=== PATIENT | male | born 1950 | race Caucasian/White ===

== ENCOUNTER 2024-06-07 11:51 | Inpatient (IN) | payer MEDICARE, OTHER ==
[~2024-06-07] VITALS: Ht 188 cm; Wt 105.0 kg
[2024-06-07] MEDS: SODIUM CHLORIDE 0.9% 1,000 ML IVB ONE (12:15)
[2024-06-07] MEDS: SODIUM CHLORIDE 0.9% 2,000 ML IV ONE (12:15)
[2024-06-07] MEDS: BACITRACIN TOP OINT 1 UD PKG TOP ONE (12:15)
[2024-06-07 12:43] LABS: Basophils # (auto) 0 10 ^3/uL (0-0.2); Basophils % (auto) 0.1 % (0.0-2.0); Eosinophils # (auto) 0.1 10 ^3/uL (0-0.8); Eosinophils % (auto) 0.5 % (0.0-7.0); Hematocrit 29.7 % (41.0-53.0); Hemoglobin 9.9 g/dL (13.5-17.5); Lymphocytes # (auto) 0.7 10 ^3/uL (0.4-5.4); Lymphocytes % (auto) 6.1 % (10.0-50.0); Mean Corpuscular Hemoglobin 32.2 pg (28.0-32.0); Mean Corpuscular Hgb Conc. 33.4 g/dL (32.0-36.0); Mean Corpuscular Volume 96.6 fL (80.0-100.0); Monocytes # (auto) 0.8 10 ^3/uL (0-1.3); Monocytes % (auto) 6.7 % (0.0-12.0); Neutrophils # (auto) 10.3 10 ^3/uL (1.6-8.6); Neutrophils % (auto) 86.6 % (37.0-80.0); Platelet Count (auto) 267 10^3/uL (140-450); Red Blood Cells 3.08 10^6/uL (4.5-5.90); Red Cell Distribution Width 13.5 % (11.8-14.3); White Blood Cell 11.9 10^3/uL (4.4-10.8)
[2024-06-07 13:03] LABS: Alanine Aminotransferase 22 U/L (7-40); Albumin 3.2 g/dL (3.2-4.8); Alkaline Phosphatase 103 U/L (46-116); Anion Gap 7 (5-15); Aspartate Aminotransferase 17 U/L (13-40); BUN/Creatinine Ratio 14.1 (10.0-20.0); Blood Urea Nitrogen 33 mg/dL (9-23); Calcium 8.3 mg/dL (8.5-10.1); Carbon Dioxide 18 mmol/L (20-30); Chloride 111 mmol/L (98-107); Glucose 103 mg/dL (74-106); Magnesium 1.7 mg/dL (1.6-2.6); Potassium 4.2 mmol/L (3.5-5.1); Sodium 136 mmol/L (136-145); Total Protein 6.4 g/dL (5.7-8.2)
[2024-06-07 13:04] LABS: Bilirubin, Total 0.4 mg/dL (0.2-1.0)
[2024-06-07 14:44] VITALS: PULSE 93; O2SAT 95
[2024-06-07] MEDS: cefTRIAXone 1GM/50ML D5W 50 ML IV ONE (15:56)
[2024-06-07 18:52] LABS: Urine Bacteria None Seen /hpf (None Seen)
[2024-06-07 19:18] LABS: Urine Blood 1+ /uL (Negative); Urine Clarity Clear (Clear); Urine Color Light-Yellow (Yellow); Urine Protein, UAD 1+ (Negative); Urine Specific Gravity 1.013 (1.001-1.035); Urine Urobilinogen Normal (Negative); Urine WBC 3 /hpf (0 - 3); Urine pH 5.5 (5.0-9.0)
[2024-06-07 19:50] VITALS: PULSE 93; RESP 16; O2SAT 95
[2024-06-07] MEDS ORDERED: ONDANSETRON HCL 4 MG/2 ML VIAL IV PRN (22:00)
[2024-06-07] MEDS ORDERED: ACETAMINOPHEN 325 MG TAB PO PRN (22:00)
[2024-06-07] MEDS: ACCU-CHEK COMFORT CURVE STRIP VI SCH (22:00)
[2024-06-07] MEDS ORDERED: DEXTROSE (50%) 50ML SYRG IV PRN (22:00)
[2024-06-07] MEDS: SODIUM CHLOR 0.9% PF (SALINE LOCK) 10ML VIAL/SYR IV SCH (22:00)
[2024-06-07] MEDS: InsuLIN REG 1unit/0.01ml Soln (100units/ml) SC SCH (23:33)
[2024-06-07] MEDS: FUROSEMIDE 20 MG/2 ML VIAL IV ONE (23:35)
[2024-06-07] MEDS ORDERED: NITROGLYCERIN 0.4 MG SL TAB SL PRN (23:45)
[2024-06-07] MEDS ORDERED: MORPHINE SULFATE INJ 2 MG/ml SYRG IV PRN (23:45)
[2024-06-08] VITALS (8 sets, daily range): BP systolic 124–154; BP diastolic 56–69; PULSE 78–87; RESP 17–18; TEMP 97.8–98; O2SAT 94–96
[2024-06-08 06:33] LABS: Basophils # (auto) 0 10 ^3/uL (0-0.2); Basophils % (auto) 0.1 % (0.0-2.0); Eosinophils # (auto) 0.2 10 ^3/uL (0-0.8); Eosinophils % (auto) 1.7 % (0.0-7.0); Hematocrit 26.9 % (41.0-53.0); Hemoglobin 9.1 g/dL (13.5-17.5); Lymphocytes # (auto) 1.1 10 ^3/uL (0.4-5.4); Lymphocytes % (auto) 11.4 % (10.0-50.0); Mean Corpuscular Hemoglobin 33.2 pg (28.0-32.0); Mean Corpuscular Hgb Conc. 33.9 g/dL (32.0-36.0); Mean Corpuscular Volume 97.8 fL (80.0-100.0); Monocytes # (auto) 0.6 10 ^3/uL (0-1.3); Monocytes % (auto) 6.4 % (0.0-12.0); Neutrophils # (auto) 7.4 10 ^3/uL (1.6-8.6); Neutrophils % (auto) 80.4 % (37.0-80.0); Platelet Count (auto) 217 10^3/uL (140-450); Red Blood Cells 2.75 10^6/uL (4.5-5.90); Red Cell Distribution Width 13.8 % (11.8-14.3); White Blood Cell 9.3 10^3/uL (4.4-10.8)
[2024-06-08 06:55] LABS: Alanine Aminotransferase 18 U/L (7-40); Albumin 2.8 g/dL (3.2-4.8); Alkaline Phosphatase 88 U/L (46-116); Anion Gap 8 (5-15); Aspartate Aminotransferase 20 U/L (13-40); BUN/Creatinine Ratio 12.7 (10.0-20.0); Bilirubin, Total 0.3 mg/dL (0.2-1.0); Blood Urea Nitrogen 26 mg/dL (9-23); Calcium 7.9 mg/dL (8.5-10.1); Carbon Dioxide 18 mmol/L (20-30); Chloride 111 mmol/L (98-107); Glucose 92 mg/dL (74-106); Potassium 3.8 mmol/L (3.5-5.1); Sodium 137 mmol/L (136-145); Total Protein 5.6 g/dL (5.7-8.2)
[2024-06-08] MEDS: FUROSEMIDE 20 MG/2 ML VIAL IV SCH (09:48)
[2024-06-08] MEDS: cefTRIAXone 1GM/50ML D5W 50 ML IV SCH (17:31)
[2024-06-08 19:32] LABS: Folate (Folic Acid) 3.12 ng/mL (>5.38)
[2024-06-08 20:04] LABS: Protein, Urine 91.3 mg/dL (0.0-11.9); Urine Amorphous Crystal FEW /hpf (None Seen); Urine Bacteria FEW /hpf (None Seen); Urine Blood 1+ /uL (Negative); Urine Clarity Clear (Clear); Urine Color Light-Yellow (Yellow); Urine Mucus FEW (None Seen); Urine Protein, UAD 1+ (Negative); Urine Specific Gravity 1.013 (1.001-1.035); Urine Urobilinogen Normal (Negative); Urine WBC 4 /hpf (0 - 3)
[2024-06-08 22:13] LABS: INR 1.08 (0.9-1.15); Prothrombin Time 11.4 sec (9.3-11.8)
[2024-06-09] VITALS (8 sets, daily range): BP systolic 124–163; BP diastolic 51–78; PULSE 79–95; RESP 18–20; TEMP 97.8–98.6; O2SAT 95–99
[2024-06-09 05:55] LABS: Basophils # (auto) 0 10 ^3/uL (0-0.2); Basophils % (auto) 0.4 % (0.0-2.0); Eosinophils # (auto) 0.1 10 ^3/uL (0-0.8); Eosinophils % (auto) 1.5 % (0.0-7.0); Hematocrit 27.2 % (41.0-53.0); Hemoglobin 9.2 g/dL (13.5-17.5); Lymphocytes # (auto) 1.3 10 ^3/uL (0.4-5.4); Lymphocytes % (auto) 14.1 % (10.0-50.0); Mean Corpuscular Hemoglobin 32.8 pg (28.0-32.0); Mean Corpuscular Hgb Conc. 33.9 g/dL (32.0-36.0); Mean Corpuscular Volume 96.6 fL (80.0-100.0); Monocytes # (auto) 0.6 10 ^3/uL (0-1.3); Monocytes % (auto) 6.7 % (0.0-12.0); Neutrophils % (auto) 77.3 % (37.0-80.0); Nucleated Red Blood Cells % 0.1 %; Platelet Count (auto) 215 10^3/uL (140-450); Red Blood Cells 2.82 10^6/uL (4.5-5.90); Red Cell Distribution Width 13.6 % (11.8-14.3); White Blood Cell 9.1 10^3/uL (4.4-10.8)
[2024-06-09 06:09] LABS: Chloride 110 mmol/L (98-107); Potassium 4.1 mmol/L (3.5-5.1); Sodium 136 mmol/L (136-145)
[2024-06-09 06:10] LABS: Anion Gap 5 (5-15); Carbon Dioxide 21 mmol/L (20-30)
[2024-06-09 06:11] LABS: Calcium 7.9 mg/dL (8.7-10.4)
[2024-06-09 06:15] LABS: Glucose 99 mg/dL (74-106)
[2024-06-09 06:20] LABS: BUN/Creatinine Ratio 12.9 (10.0-20.0); Blood Urea Nitrogen 27 mg/dL (9-23)
[2024-06-09] MEDS: ENOXAPARIN SOD 40 MG/0.4 ML SYRINGE SC SCH (10:36)
[2024-06-09] MEDS: predniSONE 5 MG TAB PO ONE (16:14)
[2024-06-09] MEDS: FLUCONAZOLE 200MG/100ML 100 ML IV ONE (16:14)
[2024-06-10] VITALS (8 sets, daily range): BP systolic 138–165; BP diastolic 50–81; PULSE 76–93; RESP 18–20; TEMP 97.9–98.4; O2SAT 95–98
[2024-06-10 06:18] LABS: Basophils # (auto) 0 10 ^3/uL (0-0.2); Basophils % (auto) 0.2 % (0.0-2.0); Eosinophils # (auto) 0.1 10 ^3/uL (0-0.8); Hemoglobin 9.6 g/dL (13.5-17.5); Lymphocytes # (auto) 1.3 10 ^3/uL (0.4-5.4); Lymphocytes % (auto) 12.7 % (10.0-50.0); Mean Corpuscular Hemoglobin 33.2 pg (28.0-32.0); Mean Corpuscular Hgb Conc. 34.3 g/dL (32.0-36.0); Mean Corpuscular Volume 96.6 fL (80.0-100.0); Monocytes # (auto) 0.6 10 ^3/uL (0-1.3); Monocytes % (auto) 5.7 % (0.0-12.0); Neutrophils # (auto) 8.3 10 ^3/uL (1.6-8.6); Neutrophils % (auto) 80.4 % (37.0-80.0); Platelet Count (auto) 211 10^3/uL (140-450); Red Cell Distribution Width 13.5 % (11.8-14.3); White Blood Cell 10.4 10^3/uL (4.4-10.8)
[2024-06-10 06:45] LABS: Alanine Aminotransferase 16 U/L (7-40); Alkaline Phosphatase 84 U/L (46-116); Anion Gap 4 (5-15); Aspartate Aminotransferase 15 U/L (13-40); Carbon Dioxide 23 mmol/L (20-30); Chloride 108 mmol/L (98-107); Glucose 100 mg/dL (74-106); Magnesium 1.3 mg/dL (1.6-2.6); Potassium 4.5 mmol/L (3.5-5.1); Sodium 135 mmol/L (136-145)
[2024-06-10 06:46] LABS: Albumin 2.7 g/dL (3.2-4.8); Bilirubin, Total 0.2 mg/dL (0.2-1.0); Total Protein 5.6 g/dL (5.7-8.2)
[2024-06-10 07:03] LABS: BUN/Creatinine Ratio 12.4 (10.0-20.0); Blood Urea Nitrogen 25 mg/dL (9-23)
[2024-06-10] MEDS: FLUCONAZOLE 200MG/100ML 100 ML IV SCH (09:44)
[2024-06-10] MEDS: DOCUSATE SOD 100 MG CAP PO PRN (09:45)
[2024-06-10] MEDS: predniSONE 5 MG TAB PO SCH (09:45)
[2024-06-10] MEDS: predniSONE 20 MG TAB PO ONE (19:41)
[2024-06-11] VITALS (8 sets, daily range): BP systolic 146–166; BP diastolic 76–92; PULSE 69–85; RESP 14–19; TEMP 97.4–98.1; O2SAT 95–96
[2024-06-11] MEDS: cloNIDine HCL 0.1 MG TAB PO ONE (01:21)
[2024-06-11] MEDS: LOSARTAN POTASSIUM 25 MG TAB PO ONE (06:36)
[2024-06-11 07:14] LABS: Anion Gap 5 (5-15); Carbon Dioxide 21 mmol/L (20-30); Chloride 106 mmol/L (98-107); Potassium 5.1 mmol/L (3.5-5.1); Sodium 132 mmol/L (136-145)
[2024-06-11 07:15] LABS: Calcium 8.3 mg/dL (8.7-10.4)
[2024-06-11 07:20] LABS: BUN/Creatinine Ratio 11.8 (10.0-20.0); Blood Urea Nitrogen 22 mg/dL (9-23); Glucose 177 mg/dL (74-106)
[2024-06-11] MEDS: predniSONE 20 MG TAB PO SCH (11:00)
[2024-06-11] MEDS: FUROSEMIDE 20 MG TAB PO ONE (11:05)
[2024-06-11] MEDS: hydrALAZINE HCL 20 MG/ML VL IV PRN (18:25)
[2024-06-11] MEDS ORDERED: SACUBITRIL-VALSARTAN 24mg/26mg TAB PO SCH (22:00)
[2024-06-12] MEDS: LOSARTAN POTASSIUM 25 MG TAB PO ONE (00:43)
[2024-06-12 05:00] VITALS: BP 168/80; PULSE 74; RESP 18; TEMP 97.5; O2SAT 95
[2024-06-12 07:20] LABS: Basophils # (auto) 0 10 ^3/uL (0-0.2); Basophils % (auto) 0.1 % (0.0-2.0); Eosinophils # (auto) 0 10 ^3/uL (0-0.8); Eosinophils % (auto) 0.1 % (0.0-7.0); Hematocrit 28.8 % (41.0-53.0); Hemoglobin 9.7 g/dL (13.5-17.5); Lymphocytes # (auto) 1.3 10 ^3/uL (0.4-5.4); Lymphocytes % (auto) 10.2 % (10.0-50.0); Mean Corpuscular Hemoglobin 32.2 pg (28.0-32.0); Mean Corpuscular Hgb Conc. 33.5 g/dL (32.0-36.0); Mean Corpuscular Volume 96.2 fL (80.0-100.0); Monocytes # (auto) 0.6 10 ^3/uL (0-1.3); Monocytes % (auto) 4.5 % (0.0-12.0); Neutrophils # (auto) 11.2 10 ^3/uL (1.6-8.6); Neutrophils % (auto) 85.1 % (37.0-80.0); Nucleated Red Blood Cells % 0.1 %; Platelet Count (auto) 262 10^3/uL (140-450); Red Cell Distribution Width 13.8 % (11.8-14.3); White Blood Cell 13.1 10^3/uL (4.4-10.8)
[2024-06-12 07:29] LABS: Chloride 105 mmol/L (98-107); Potassium 4.7 mmol/L (3.5-5.1); Sodium 133 mmol/L (136-145)
[2024-06-12 07:30] LABS: Anion Gap 5 (5-15); Calcium 8.5 mg/dL (8.7-10.4); Carbon Dioxide 23 mmol/L (20-30)
[2024-06-12 07:35] LABS: BUN/Creatinine Ratio 15.6 (10.0-20.0); Blood Urea Nitrogen 29 mg/dL (9-23); Glucose 120 mg/dL (74-106)
[2024-06-12] MEDS: LOSARTAN POTASSIUM 50 MG TAB PO SCH (09:46)
[2024-06-12] MEDS: FUROSEMIDE 20 MG TAB PO SCH (09:47)
[2024-06-12] MEDS ORDERED: LOSARTAN POTASSIUM 25 MG TAB PO SCH (10:00)
[2024-06-12 13:20] VITALS: BP 139/66; PULSE 77; RESP 19; TEMP 97.5; O2SAT 98
[2024-06-12 13:28] VITALS: BP 139/66; PULSE 77; RESP 19; TEMP 97.5; O2SAT 98
[2024-06-12 17:15] VITALS: BP 135/80; PULSE 82; RESP 17; TEMP 97.5; O2SAT 97
[2024-06-12 20:00] VITALS: PULSE 93; PULSE 99; RESP 20
[2024-06-12 21:00] VITALS: BP 109/47; PULSE 93; RESP 20; TEMP 97.8; O2SAT 95
[2024-06-13] VITALS (11 sets, daily range): BP systolic 105–141; BP diastolic 51–68; PULSE 76–109; RESP 18–20; TEMP 97.7–98.6; O2SAT 93–96
[2024-06-13 07:57] LABS: Basophils # (auto) 0 10 ^3/uL (0-0.2); Basophils % (auto) 0.2 % (0.0-2.0); Eosinophils # (auto) 0.1 10 ^3/uL (0-0.8); Eosinophils % (auto) 0.8 % (0.0-7.0); Hematocrit 30.9 % (41.0-53.0); Hemoglobin 10.4 g/dL (13.5-17.5); Lymphocytes # (auto) 1.7 10 ^3/uL (0.4-5.4); Lymphocytes % (auto) 15.6 % (10.0-50.0); Mean Corpuscular Hemoglobin 32.6 pg (28.0-32.0); Mean Corpuscular Hgb Conc. 33.7 g/dL (32.0-36.0); Mean Corpuscular Volume 96.7 fL (80.0-100.0); Monocytes # (auto) 0.8 10 ^3/uL (0-1.3); Neutrophils # (auto) 8.3 10 ^3/uL (1.6-8.6); Neutrophils % (auto) 76.4 % (37.0-80.0); Nucleated Red Blood Cells % 0.1 %; Platelet Count (auto) 287 10^3/uL (140-450); Red Blood Cells 3.19 10^6/uL (4.5-5.90); Red Cell Distribution Width 13.7 % (11.8-14.3); White Blood Cell 10.8 10^3/uL (4.4-10.8)
[2024-06-13 08:08] LABS: Chloride 105 mmol/L (98-107); Potassium 5.4 mmol/L (3.5-5.1); Sodium 133 mmol/L (136-145)
[2024-06-13 08:09] LABS: Anion Gap 3 (5-15); Calcium 8.2 mg/dL (8.7-10.4); Carbon Dioxide 25 mmol/L (20-30)
[2024-06-13 08:14] LABS: BUN/Creatinine Ratio 18.3 (10.0-20.0); Blood Urea Nitrogen 37 mg/dL (9-23); Glucose 97 mg/dL (74-106)
[2024-06-13] MEDS: SODIUM BICARB 8.4% 50Meq/50ml SYR INJ IV ONE (15:24)
[2024-06-13] MEDS: DEXTROSE (50%) 50ML SYRG IV ONE (15:24)
[2024-06-13] MEDS: SODIUM ZIRCONIUM CYCL 10 GM PAK PO STA (15:25)
[2024-06-13] MEDS: FUROSEMIDE 20 MG/2 ML VIAL IV ONE (15:25)
[2024-06-13] MEDS: InsuLIN REG 1unit/0.01ml Soln (100units/ml) IV ONE (15:30)
[2024-06-13] MEDS: ALBUTEROL SULF 2.5 MG/0.5ML(0.5%) NEB SOLN NEB ONE (16:08)
[2024-06-13 20:06] LABS: Anion Gap 6 (5-15); Carbon Dioxide 26 mmol/L (20-30); Chloride 102 mmol/L (98-107); Potassium 4.5 mmol/L (3.5-5.1); Sodium 134 mmol/L (136-145)
[2024-06-13 20:07] LABS: Calcium 8.3 mg/dL (8.7-10.4)
[2024-06-13 20:12] LABS: BUN/Creatinine Ratio 19.2 (10.0-20.0); Blood Urea Nitrogen 41 mg/dL (9-23); Glucose 182 mg/dL (74-106)
[2024-06-13] MEDS: METOPROLOL SUCCINATE XL 50 MG TAB PO ONE (21:50)
[2024-06-14] VITALS (10 sets, daily range): BP systolic 117–153; BP diastolic 58–73; PULSE 69–84; RESP 16–18; TEMP 98–98.7; O2SAT 94–97
[2024-06-14 07:00] LABS: Basophils # (auto) 0.1 10 ^3/uL (0-0.2); Basophils % (auto) 0.6 % (0.0-2.0); Eosinophils # (auto) 0.1 10 ^3/uL (0-0.8); Eosinophils % (auto) 1.2 % (0.0-7.0); Hematocrit 27.4 % (41.0-53.0); Hemoglobin 9.3 g/dL (13.5-17.5); Lymphocytes # (auto) 1.3 10 ^3/uL (0.4-5.4); Lymphocytes % (auto) 11.2 % (10.0-50.0); Mean Corpuscular Hemoglobin 32.7 pg (28.0-32.0); Mean Corpuscular Hgb Conc. 33.9 g/dL (32.0-36.0); Mean Corpuscular Volume 96.3 fL (80.0-100.0); Monocytes % (auto) 8.2 % (0.0-12.0); Neutrophils # (auto) 9.1 10 ^3/uL (1.6-8.6); Neutrophils % (auto) 78.8 % (37.0-80.0); Nucleated Red Blood Cells % 0.1 %; Platelet Count (auto) 266 10^3/uL (140-450); Red Blood Cells 2.84 10^6/uL (4.5-5.90); Red Cell Distribution Width 13.7 % (11.8-14.3); White Blood Cell 11.6 10^3/uL (4.4-10.8)
[2024-06-14 07:02] LABS: Anion Gap 6 (5-15); Carbon Dioxide 25 mmol/L (20-30); Chloride 104 mmol/L (98-107); Potassium 4.8 mmol/L (3.5-5.1); Sodium 135 mmol/L (136-145)
[2024-06-14 07:08] LABS: BUN/Creatinine Ratio 19.8 (10.0-20.0); Blood Urea Nitrogen 41 mg/dL (9-23); Glucose 108 mg/dL (74-106)
[2024-06-14] MEDS: EMPAGLIFLOZIN 10 MG TAB PO SCH (09:21)
[2024-06-14] MEDS: METOPROLOL SUCCINATE XL 50 MG TAB PO SCH (09:22)
[2024-06-14 09:46] LABS: Hepatitis B Core Total AB Negative (Negative)
[2024-06-14 10:32] LABS: Hepatitis A Total Antibody Negative (Negative); Hepatitis B Surface Antibody Negative (Negative); Hepatitis B Surface Antigen Negative (Negative); Hepatitis C Antibody Negative (Negative)
[2024-06-15 01:00] VITALS: BP 148/75; PULSE 73; RESP 18; TEMP 98.1; O2SAT 95
[2024-06-15] MEDS: HYDROcodone-ACET 5/325MG TAB PO PRN (02:52)
[2024-06-15 05:00] VITALS: BP 122/66; PULSE 75; RESP 17; TEMP 97.6; O2SAT 92
[2024-06-15 08:00] VITALS: PULSE 80
[2024-06-15 09:00] VITALS: BP 150/79; PULSE 81; RESP 18; TEMP 98.1; O2SAT 91
[2024-06-15 10:00] VITALS: O2SAT 91
== END 2024-06-15 12:10 | disposition left against medical advice (07) | DRG 602 ==
LOC: EDBD 11:51 → ER 11:51 → TELE 23:42 → TELE-E-ADS 06-08 04:08 → TELE-EAST 06-10 15:10
PROVIDERS: ADMIT Internal Medicine Pulmonary Disease; ATTEND Emergency Medicine
DX: L03.116 Cellulitis of left lower limb (principal); N17.0 Acute kidney failure with tubular necrosis; I13.0 Hypertensive heart and chronic kidney disease with heart failure and stage 1 through stage 4 chronic kidney disease, or unspecified chronic kidney disease; F17.200 Nicotine dependence, unspecified, uncomplicated; E86.0 Dehydration; E11.51 Type 2 diabetes mellitus with diabetic peripheral angiopathy without gangrene; R62.7 Adult failure to thrive; L30.9 Dermatitis, unspecified; E11.621 Type 2 diabetes mellitus with foot ulcer; E11.22 Type 2 diabetes mellitus with diabetic chronic kidney disease; E11.40 Type 2 diabetes mellitus with diabetic neuropathy, unspecified; I50.9 Heart failure, unspecified; N18.32 Chronic kidney disease, stage 3b; E87.5 Hyperkalemia; Z89.511 Acquired absence of right leg below knee; Z99.3 Dependence on wheelchair; Z59.48 Other specified lack of adequate food
CPT/HCPCS: 36415; 70450; 70551; 71045; 80048; 80053; 81001; 82550; 82607; 82746; 82962; 83036; 83735; 83880; 84100; 84156; 84300; 84443; 85025; 85610; 86703; 86704; 86706; 86708; 86803; 87086; 87340; 93005; 93306; G0378; J1450; J1815

== ENCOUNTER 2024-10-22 01:28 | Inpatient (IN) | payer MEDICARE ==
[~2024-10-22] VITALS: Ht 175.3 cm; Wt 97.8 kg
[2024-10-22] MEDS ORDERED: SODIUM CHLORIDE 0.9% 1,000 ML IV ONE (02:00)
[2024-10-22 02:15] VITALS: PULSE 67; RESP 26; O2SAT 100
--- NOTE | 2024-10-22 02:25 | ED.PDOC ---
History of Present Illness HPI Comments 74-year-old male brought in by EMS from home complaining of generalized weakness, nausea, vomiting, shortness a breath and urinary incontinence for the past 2 days. Patient states he is wheelchair-bound and has been having difficulty getting around in his wheelchair due to the weakness. He denies any headache, vision changes or focal weakness. He denies any fever or abdominal pain. Chief Complaint: General Weakness Time Seen by MD: 01:42 Primary Care Provider: NONE Allergies: Coded Allergies: NO KNOWN ALLERGIES (Unverified , 06/07/24) Home Meds No Active Prescriptions or Reported Meds Mode of Arrival: EMS Past Medical History PAST MEDICAL HISTORY: CHF, CKF, DM, HTN Surgical History: BKA Family History Family History: Unknown Social History Smoker: Cigarettes Alcohol: Denies ETOH Use Drugs: Denies Drug Use Lives In: Home All Other Systems: Reviewed and Negative (Comprehensive systems review obtained and negative except for what is stated in the HPI.) Physical Exam General Appearance: Moderate Distress, Obese HEENT: Pale Conjuntivae (L), Pale Conjuntivae (R), Other (Dry mucous membranes) Neck: Full Range of Motion, Non-Tender, Normal Inspection, Supple Respiratory: Decreased Breath Sounds, No Accessory Muscle Use, No Respiratory Distress Cardiovascular: No Edema, No JVD, Regular Rate/Rhythm Breast Exam: Deferred Gastrointestinal: Hernia (Ventral, soft, nontender), Suprapubic, Tenderness (Suprapubic) Genitalia: Deferred Pelvic: Deferred Rectal: Deferred Extremities: Non-tender, No pedal edema, Other (Right BKA) Neurologic: Alert, No Motor Deficits, Normal Affect, Normal Mood, No Sensory Deficits, Other (Moves all extremities, no dysarthria, no facial asymmetry) Cerebellar Function: NOT DONE Reflexes: NOT DONE Skin: Dry, Pallor, Warm Lymphatic: NOT DONE Was a procedure done? 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: Attending Physician Indication: Inability to obtain IV Room prepared for procedure: Yes Rotary Lithographic Press Operator performed hand hygien: Yes Maximal sterile barrier precau: Sterile gown, Sterlie gloves, Large sterlie drape Skin preparation completely dr: Yes Insertion site: Right, Femoral Central line catheter type: [id number] dialysis Number of lumens: 3 Central line exchanged over a: Yes Antiseptic ointment applied to: No Post Assessment: Proper placement Informed consent obtained: Yes Risks/benefits/alt described: Yes EKG EKG : Comments Sinus rhythm, rate 65, MD prolonged at 263, QRS prolonged at 132, QTC 449, left axis deviation, LVH, old inferior infarct, lateral T-wave inversion Differential Dx Considerations may include: UTI, pneumonia, CHF, COPD, bronchitis, anemia, sepsis, dehydration, electrolyte imbalance, arrhythmia, CT, PE, among others X-Ray, Labs, Meds, VS Vital Signs Date Time Temp Pulse Resp B/P (MAP) Pulse Ox O2 Delivery O2 Flow Rate FiO2 10/22/24 02:14 67 16 141/70 (93) 98 10/22/24 01:38 97.0 66 20 74/49 (57) 97 Lab Test 10/22/24 03:40 10/22/24 02:25 Range/Units Troponin I High Sensitivity 15 14 </=54 ng/L White Blood Count 6.0 4.4-10.8 10^3/uL Red Blood Count 3.61 L 4.5-5.90 10^6/uL Hemoglobin 11.3 L 13.5-17.5 g/dL Hematocrit 35.6 L 41.0-53.0 % Mean Corpuscular Volume 98.7 80.0-100.0 fL Mean Corpuscular Hemoglobin 31.3 28.0-32.0 pg Mean Corpuscular Hemoglobin Concent 31.7 L 32.0-36.0 g/dL Red Cell Distribution Width 14.5 H 11.8-14.3 % Platelet Count 240 140-450 10^3/uL Mean Platelet Volume 7.6 6.9-10.8 fL Neutrophils (%) (Auto) 83.0 H 37.0-80.0 % Lymphocytes (%) (Auto) 9.5 L 10.0-50.0 % Monocytes (%) (Auto) 7.3 0.0-12.0 % Eosinophils (%) (Auto) 0.1 0.0-7.0 % Basophils (%) (Auto) 0.1 0.0-2.0 % Neutrophils # (Auto) 5.0 1.6-8.6 10 ^3/uL Lymphocytes # (Auto) 0.6 0.4-5.4 10 ^3/uL Monocytes # (Auto) 0.4 0-1.3 10 ^3/uL Eosinophils # (Auto) 0 0-0.8 10 ^3/uL Basophils # (Auto) 0 0-0.2 10 ^3/uL Nucleated Red Blood Cells 0.1 % Sodium Level 131 L 136-145 mmol/L Potassium Level 5.8 *H 3.5-5.1 mmol/L Chloride Level 104 98-107 mmol/L Carbon Dioxide Level < 10 *L 20-31 mmol/L Anion Gap 17.61730 H 5-15 Blood Urea Nitrogen 71 H 9-23 mg/dL Creatinine 4.10 H 0.700-1.30 mg/dL Glomerular Filtration Rate Calc 15 >90 mL/min BUN/Creatinine Ratio 17.3 10.0-20.0 Serum Glucose 154 H 74-106 mg/dL Lactic Acid Level 3.6 *H 0.4-2.0 mmol/L Calcium Level 9.8 8.7-10.4 mg/dL Total Bilirubin 0.5 0.2-1.0 mg/dL Aspartate Amino Transferase (AST) 21 13-40 U/L Alanine Aminotransferase (ALT) 20 7-40 U/L Alkaline Phosphatase 115 46-116 U/L B-Type Natriuretic Peptide 90.89 0-100 pg/mL Total Protein 9.1 H 5.7-8.2 g/dL Albumin 4.3 3.2-4.8 g/dL Current Medications Medications (Trade) Dose Ordered Sig/Darvin Route Start Time Stop Time Status Last Admin Ondansetron HCl (Zofran) 4 mg ONCE ONCE IV 10/22/24 02:00 10/22/24 02:01 DC 10/22/24 03:19 Famotidine (Pepcid Injection) 20 mg ONCE ONCE IV 10/22/24 02:00 10/22/24 02:01 DC 10/22/24 03:17 PROCEDURE(s): CXRP - CHEST PORTABLE REASON: gen weak, hypotension ORDER NUMBER(s): [id number], ACCESSION NUMBER(s): [id number] Examination: CXRP CLINICAL INDICATION:gen weak, hypotension COMPARISON: None. TECHNIQUE: Frontal radiograph of the chest was obtained. FINDINGS: Patient is in slight rotation. Lungs are clear and well expanded with no pulmonary infiltrate or pleural effusion. There is no pneumothorax. No evidence of cardiomegaly. Mildly elevated left hemidiaphragm. Degenerative changes at bilateral glenohumeral and acromioclavicular joints. No acute osseous abnormality is seen. Radiodensity noted over the upper trachea. Advised clinical correlation. IMPRESSION: No acute cardiopulmonary disease is seen. Electronically Signed 10/22/2024 02:25 Alexander Collins EDURE(s): ABPL - CT AB PEL WO CON-NO ORAL OR IV REASON: abd pain n/v ORDER NUMBER(s): [id number], ACCESSION NUMBER(s): [id number] Critical Finding: Examination: ABPL CLINICAL INDICATION: abd pain n/v COMPARISON: None. CONTRAST USED: None. TECHNIQUE: A plain CT study of the abdomen and pelvis is performed. The examination was performed with 5 mm thin slices. Multiplanar reconstructions were obtained. CT scan was done according to ALARA (As Low As Reasonably Achievable). FINDINGS: CT ABDOMEN Lung bases: Subsegmental atelectasis is seen in both lower lobes. Elevation of left hemidiaphragm is seen suggestive of diaphragmatic eventration or palsy. Suggest ultrasound or fluoroscopy correlation. Solid nodule measuring 7.7 mm is seen in the left lung base. [employer] FOLLOW-UP GUIDELINES: Recommendation: Low-risk patients: CT at 6-12 months, then consider CT at 18-24 months. High-risk patients: CT at 6-12 months, then CT at 18-24 months. Unenhanced Liver: The liver is normal in size. There is no intrahepatic biliary radicle dilatation. Gallbladder: The gallbladder is well distended with few 2 to 3 mm calculi. The common bile duct is not dilated. Unenhanced Pancreas: The pancreas appears atrophic with multiple parenchymal calcifications suggestive of chronic calcific pancreatitis. The peripancreatic fat-planes are normal. Spleen: The spleen is normal in size and does not show any focal abnormality. Retroperitoneum: Subcentimeter-sized left adrenal adenoma is seen. There is no significant retroperitoneal lymphadenopathy. The kidneys are normal in size, with no hydronephrosis or renal calculi. Mild bilateral renal parenchymal thinning seen. Vessels: Aorta, IVC and the mesenteric vessels cannot be commented in this unenhanced CT scan. Stomach and bowel: The small bowel loops appear slightly prominent, measuring 26 mm and fluid filled. There is no ascites. Skeletal system: Degenerative changes are seen involving the spine, bilateral sacroiliac and hip joints. CT PELVIS Appendix: The appendix is unremarkable in appearance. Colon: The cecum and ascending colon appear dilated, measuring 8 cm. The transverse, descending, sigmoid colon and rectum are prominent and fluid filled. Bladder: The urinary bladder is unremarkable. Prostate reveals no abnormality. Bilateral small inguinal hernias seen, containing fat. No abnormal fluid collection is seen. No pelvic lymphadenopathy is identified. IMPRESSION: 1. Small bowel loops appear slightly prominent and fluid filled. The cecum and ascending colon appear dilated. The transverse, descending, sigmoid colon and rectum are prominent and fluid filled. This may represent paralytic ileus in appropriate clinical settings. 2. No abdominal mass or adenopathy. 3. No ascites. 4. No free air or inflammatory changes. Suggest further evaluation with oral and intravenous contrast study. Additional chronic and/or ancillary findings as detailed above. Suggest clinical correlation and follow-up, as clinically deemed necessary. Electronically Signed 10/22/2024 02:55 Alexander Collins X-Ray, Labs, Meds, VS Comment 74-year-old male with a history of hypertension, diabetes, CHF and CKD status post right AKA brought in by EMS from home complaining of generalized weakness, nausea, vomiting, urinary incontinence and shortness of breath Vitals remarkable for temperature 97, BP 74/49 Exam remarkable for moderate distress, active vomiting, suprapubic tenderness, pallor Rhythm strip independently interpreted by me: Sinus rhythm, rate 67, no ectopy. Chest x-ray unremarkable CT abdomen and pelvis IMPRESSION: 1. Small bowel loops appear slightly prominent and fluid filled. The cecum and ascending colon appear dilated. The transverse, descending, sigmoid colon and rectum are prominent and fluid filled. This may represent paralytic ileus in appropriate clinical settings. 2. No abdominal mass or adenopathy. 3. No ascites. 4. No free air or inflammatory changes. CBC remarkable for hemoglobin 11.3, hematocrit 35.6, differential has a left shift comprehensive metabolic panel, BNP troponin negative UA, lactate pending Patient treated with the following in the ED: Zofran 4 mg IV, 1 L 0.9 normal saline IV bolus, morphine 4 mg IV, regular insulin 10 units IV, D50 50 mL IV, albuterol nebulized, sodium bicarb 1 amp IV, calcium gluconate 1 g IV Plan is to admit the patient for IV hydration, electrolyte correction, pain and emesis control and nephrology evaluation Time of 1ST Reevaluation: 02:25 Reevaluation 1ST: Improved Patient Education/Counseling: Diagnosis, Treatment Family Education/Counseling: No Family Present Departure 1 Departure Time of Disposition: 03:00 Impression: Primary Impression: Paralytic ileus of small intestine and colon Additional Impressions: Acute renal failure superimposed on chronic kidney disease Qualified Codes: N17.9 - Acute kidney failure, unspecified; N18.9 - Chronic kidney disease, unspecified Electrolyte imbalance Elevated lactic acid level Disposition: ADMITTED INPATIENT Admit to: Tele Condition: Guarded e-Prescriptions No Active Prescriptions or Reported Meds Critical Care Note Critical Care Time?: Yes (45 min-critical care time only) Critical care comment: Critical care time including multiple bedside re-evaluations, review of lab and imaging studies, and discussion of the case with the admitting provider. Patient is high risk for metabolic decompensation. Stability Stability form required: No Heart Score Heart Score: Heart Score Response (Comments) Value History N/A 0 EKG N/A 0 Age N/A 0 Risk Factors N/A 0 Troponin N/A 0 Total 0 PAUL MEADOWS MD Oct 22, 2024 02:25
--- NOTE | 2024-10-22 02:56 | DVH ---
Critical Finding: Examination: ABPL CLINICAL INDICATION: abd pain n/v COMPARISON: None. CONTRAST USED: None. TECHNIQUE: A plain CT study of the abdomen and pelvis is performed. The examination was performed w ith 5 mm thin slices. Multiplanar reconstructions were obtained. CT scan was done according to ALAR A (As Low As Reasonably Achievable). FINDINGS: CT ABDOMEN Lung bases: Subsegmental atelectasis is seen in both lower lobes. Elevation of left hemidiaphragm is seen suggestive of diaphragmatic eventration or palsy. Suggest ul trasound or fluoroscopy correlation. Solid nodule measuring 7.7 mm is seen in the left lung base. [employer] FOLLOW-UP GUIDELINES: Recommendation: Low-risk patients: CT at 6-12 months, then consider CT at 18-24 months. High-risk patients: CT at 6-12 months, then CT at 18-24 months. Unenhanced Liver: The liver is normal in size. There is no intrahepatic biliary radicle dilatation. Gallbladder: The gallbladder is well distended with few 2 to 3 mm calculi. The common bile duct is not dilated. Unenhanced Pancreas: The pancreas appears atrophic with multiple parenchymal calcifications suggest skyler of chronic calcific pancreatitis. The peripancreatic fat-planes are normal. Spleen: The spleen is normal in size and does not show any focal abnormality. Retroperitoneum: Subcentimeter-sized left adrenal adenoma is seen. There is no significant retroperitoneal lymphadenopathy. The kidneys are normal in size, with no hydronephrosis or renal calculi. Mild bilateral renal parenchymal thinning seen. Vessels: Aorta, IVC and the mesenteric vessels cannot be commented in this unenhanced CT scan. Stomach and bowel: The small bowel loops appear slightly prominent, measuring 26 mm and fluid filled . There is no ascites. Skeletal system: Degenerative changes are seen involving the spine, bilateral sacroiliac and hip sagrario nts. CT PELVIS Appendix: The appendix is unremarkable in appearance. Colon: The cecum and ascending colon appear dilated, measuring 8 cm. The transverse, descending, si gmoid colon and rectum are prominent and fluid filled. Bladder: The urinary bladder is unremarkable. Prostate reveals no abnormality. Bilateral small inguinal hernias seen, containing fat. No abnormal fluid collection is seen. No pelvic lymphadenopathy is identified. IMPRESSION: 1. Small bowel loops appear slightly prominent and fluid filled. The cecum and ascending colon appe ar dilated. The transverse, descending, sigmoid colon and rectum are prominent and fluid filled. Thi s may represent paralytic ileus in appropriate clinical settings. 2. No abdominal mass or adenopathy. 3. No ascites. 4. No free air or inflammatory changes. Suggest further evaluation with oral and intravenous contrast study. Additional chronic and/or ancillary findings as detailed above. Suggest clinical correlation and follow-up, as clinically deemed necessary. Electronically Signed 10/22/2024 02:55 Alexander Collins
[2024-10-22 03:01] LABS: Basophils # (auto) 0 10 ^3/uL (0-0.2); Basophils % (auto) 0.1 % (0.0-2.0); Eosinophils # (auto) 0 10 ^3/uL (0-0.8); Eosinophils % (auto) 0.1 % (0.0-7.0); Hematocrit 35.6 % (41.0-53.0); Hemoglobin 11.3 g/dL (13.5-17.5); Lymphocytes # (auto) 0.6 10 ^3/uL (0.4-5.4); Lymphocytes % (auto) 9.5 % (10.0-50.0); Mean Corpuscular Hemoglobin 31.3 pg (28.0-32.0); Mean Corpuscular Hgb Conc. 31.7 g/dL (32.0-36.0); Mean Corpuscular Volume 98.7 fL (80.0-100.0); Monocytes # (auto) 0.4 10 ^3/uL (0-1.3); Monocytes % (auto) 7.3 % (0.0-12.0); Nucleated Red Blood Cells % 0.1 %; Platelet Count (auto) 240 10^3/uL (140-450); Red Blood Cells 3.61 10^6/uL (4.5-5.90); Red Cell Distribution Width 14.5 % (11.8-14.3)
[2024-10-22] MEDS: FAMOTIDINE (10MG/ML) 2ML VL IV ONE (03:17)
[2024-10-22] MEDS: ONDANSETRON HCL 4 MG/2 ML VIAL IV ONE (03:19)
[2024-10-22 03:22] LABS: Alanine Aminotransferase 20 U/L (7-40); Albumin 4.3 g/dL (3.2-4.8); Alkaline Phosphatase 115 U/L (46-116); Anion Gap 17.00001 (5-15); Aspartate Aminotransferase 21 U/L (13-40); BUN/Creatinine Ratio 17.3 (10.0-20.0); Bilirubin, Total 0.5 mg/dL (0.2-1.0); Blood Urea Nitrogen 71 mg/dL (9-23); Calcium 9.8 mg/dL (8.7-10.4); Chloride 104 mmol/L (98-107); Glucose 154 mg/dL (74-106); Sodium 131 mmol/L (136-145); Total Protein 9.1 g/dL (5.7-8.2)
[2024-10-22 03:29] LABS: Carbon Dioxide < 10 mmol/L (20-31); Potassium 5.8 mmol/L (3.5-5.1)
[2024-10-22 03:30] LABS: Lactic Acid w/Reflex 3.6 mmol/L (0.4-2.0)
[2024-10-22] MEDS: MORPHINE SULFATE 4 MG/ML SYR/VIAL IV ONE (04:00)
[2024-10-22] MEDS: ALBUTEROL SULF 2.5 MG/0.5ML(0.5%) NEB SOLN NEB ONE (04:20)
[2024-10-22] MEDS: CALCIUM GLUC 1,000mg/50ml-NS 50 ML IV ONE (04:44)
[2024-10-22] MEDS: DEXTROSE (50%) 50ML SYRG IV ONE (04:56)
[2024-10-22] MEDS: SODIUM BICARB 8.4% 50Meq/50ml SYR Vial IV ONE (05:01)
[2024-10-22] MEDS: SODIUM ZIRCONIUM CYCL 10 GM PAK PO ONE (05:12)
[2024-10-22] MEDS: InsuLIN REG 1unit/0.01ml Soln (100units/ml) IV ONE (05:32)
[2024-10-22 05:45] LABS: Urine Bacteria None Seen /hpf (None Seen)
[2024-10-22] MEDS: NOREPINEPHRINE 8 MG/250ML KIT 250 ML IV SCH (05:47)
[2024-10-22] MEDS: SODIUM CHLORIDE 0.9% 1,000 ML IV ONE (06:15)
[2024-10-22 06:31] LABS: Urine Amorphous Crystal FEW /hpf (None Seen); Urine Blood Negative /uL (Negative); Urine Clarity Clear (Clear); Urine Color Yellow (Yellow); Urine Protein, UAD 1+ (Negative); Urine Specific Gravity 1.015 (1.001-1.035); Urine Urobilinogen Normal (Negative); Urine WBC <1 /hpf (0 - 3)
[2024-10-22] MEDS ORDERED: NITROGLYCERIN 0.4 MG SL TAB SL PRN (06:45)
[2024-10-22] MEDS ORDERED: ONDANSETRON HCL 4 MG/2 ML VIAL IV PRN (06:45)
[2024-10-22] MEDS ORDERED: MORPHINE SULFATE INJ 2 MG/ml SYRG IV PRN ×2 (06:45)
[2024-10-22] MEDS ORDERED: DEXTROSE (50%) 50ML SYRG IV PRN (06:45)
--- NOTE | 2024-10-22 06:58 | ECG ---
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
--- NOTE | 2024-10-22 06:59 | DVHHP2 ---
History of Present Illness Reason for Visit: Generalized weakness History of Present Illness 74 presents for evaluation of generalized weakness. Patient a two day history of generalized weakness with associated nausea vomiting and mild abdominal distention. Also reports mild shortness for breath. Denies cough or fever. Denies diarrhea. No cardiac complaints. Past Medical History Chronic kidney disease, diabetes mellitus, hypertension, congestive heart failure Past Surgical History BKA Family History Noncontributory Smoke: <1 pack per day ALCOHOL: none Drugs: None Lives: with Family Review of Systems Review of Systems Review of systems are currently negative otherwise addressed in HPI. Allergies: Coded Allergies: NO KNOWN ALLERGIES (Unverified , 06/07/24) Medications Current Medications Medications Dose Ordered Sig/Darvin Route Start Time Stop Time Status Last Admin Dose Admin Norepinephrine Bitartrate 250 ml @ 3.75 mls/hr Q24H IV 10/22/24 05:45 10/22/24 05:47 3.75 MLS/HR Ceftriaxone Sodium 50 ml @ 100 mls/hr DAILY@09 IV 10/22/24 09:00 Diagnostic Test (Pha) 1 strip Q6HR 10/22/24 12:00 Insulin Human Regular Q6HR SC 10/22/24 12:00 Dextrose 50 ml UD PRN IV 10/22/24 06:45 Sodium Chloride 1,000 ml @ 65 mls/hr [id number] IV 10/22/24 06:45 Ondansetron HCl 4 mg Q4HP PRN IV 10/22/24 06:45 Morphine Sulfate 2 mg Q4HPRN PRN IV 10/22/24 06:45 Nitroglycerin 0.4 mg Q5MINP PRN SL 10/22/24 06:45 Morphine Sulfate 2 mg Q30M PRN IV 10/22/24 06:45 Exam Vital Signs Vital Signs Date Time Temp Pulse Resp B/P (MAP) Pulse Ox O2 Delivery O2 Flow Rate FiO2 10/22/24 05:47 77/43 10/22/24 05:30 82 22 99 10/22/24 04:25 Nasal Cannula* 2 28 10/22/24 01:38 97.0 Exam Gen: 74-year-old male in mild distress Skin: Warm, dry, normal color and texture, no rash. HEENT: Normocephalic atraumatic, mucous membranes moist and pink. Neck: Cervical and supraclavicular nodes normal without enlargement, trachea is midline, thyroid gland is normal without masses. Pulmonary: Clear to auscultation and percussion bilaterally. Cardiac: Regular rate and rhythm. No murmur Abdomen: Soft, nontender, nondistended, bowel sounds present all 4 quadrants, no guarding, no rigidity, no organomegaly. Extremities: No cyanosis, clubbing, no edema Neuro: Cranial nerves II through XII grossly intact, normal affect and speech, no focal motor deficits. Labs/Xrays ot dilated. Unenhanced Pancreas: The pancreas appears atrophic with multiple parenchymal calcifications suggestive of chronic calcific pancreatitis. The peripancreatic fat-planes are normal. Spleen: The spleen is normal in size and does not show any focal abnormality. Retroperitoneum: Subcentimeter-sized left adrenal adenoma is seen. There is no significant retroperitoneal lymphadenopathy. The kidneys are normal in size, with no hydronephrosis or renal calculi. Mild bilateral renal parenchymal thinning seen. Vessels: Aorta, IVC and the mesenteric vessels cannot be commented in this unenhanced CT scan. Stomach and bowel: The small bowel loops appear slightly prominent, measuring 26 mm and fluid filled. There is no ascites. Skeletal system: Degenerative changes are seen involving the spine, bilateral sacroiliac and hip joints. CT PELVIS Appendix: The appendix is unremarkable in appearance. Colon: The cecum and ascending colon appear dilated, measuring 8 cm. The transverse, descending, sigmoid colon and rectum are prominent and fluid filled. Bladder: The urinary bladder is unremarkable. Prostate reveals no abnormality. Bilateral small inguinal hernias seen, containing fat. No abnormal fluid collection is seen. No pelvic lymphadenopathy is identified. IMPRESSION: 1. Small bowel loops appear slightly prominent and fluid filled. The cecum and ascending colon appear dilated. The transverse, descending, sigmoid colon and rectum are prominent and fluid filled. This may represent paralytic ileus in appropriate clinical settings. 2. No abdominal mass or adenopathy. 3. No ascites. 4. No free air or inflammatory changes. Suggest further evaluation with oral and intravenous contrast study. Additional chronic and/or ancillary findings as detailed above. Suggest clinical correlation and follow-up, as clinically deemed necessary. Electronically Signed 10/22/2024 02:55 Alexander Collins ATED BY: CARMEN LINDSAY MD DICTATED DATE/TIME: 10/22/24 0255 SIGNED BY: CARMEN LINDSAY MD Labs Test 10/22/24 05:51 10/22/24 05:31 10/22/24 05:26 10/22/24 03:40 Range/Units POC Glucose 273 H 70-106 mg/dl Urine Color Yellow Yellow Urine Clarity Clear Clear Urine pH 5.0 5.0-9.0 Urine Specific [place] 1.015 1.001-1.035 Urine Protein 1+ H Negative Urine Ketones Negative Negative Urine Blood Negative Negative /uL Urine Nitrite Negative Negative Urine Bilirubin Negative Negative Urine Urobilinogen Normal Negative mg/dL Urine Leukocyte Esterase Negative Negative /uL Urine RBC <1 0 - 3 /hpf Urine WBC <1 0 - 3 /hpf Urine Squamous Epithelial Cells None seen <5 /hpf Urine Amorphous Crystals Few None Seen /hpf Urine Bacteria None seen None Seen /hpf Urine Glucose Trace Normal mg/dL Troponin I High Sensitivity 15 </=54 ng/L Test 10/22/24 02:25 Range/Units White Blood Count 6.0 4.4-10.8 10^3/uL Red Blood Count 3.61 L 4.5-5.90 10^6/uL Hemoglobin 11.3 L 13.5-17.5 g/dL Hematocrit 35.6 L 41.0-53.0 % Mean Corpuscular Volume 98.7 80.0-100.0 fL Mean Corpuscular Hemoglobin 31.3 28.0-32.0 pg Mean Corpuscular Hemoglobin Concent 31.7 L 32.0-36.0 g/dL Red Cell Distribution Width 14.5 H 11.8-14.3 % Platelet Count 240 140-450 10^3/uL Mean Platelet Volume 7.6 6.9-10.8 fL Neutrophils (%) (Auto) 83.0 H 37.0-80.0 % Lymphocytes (%) (Auto) 9.5 L 10.0-50.0 % Monocytes (%) (Auto) 7.3 0.0-12.0 % Eosinophils (%) (Auto) 0.1 0.0-7.0 % Basophils (%) (Auto) 0.1 0.0-2.0 % Neutrophils # (Auto) 5.0 1.6-8.6 10 ^3/uL Lymphocytes # (Auto) 0.6 0.4-5.4 10 ^3/uL Monocytes # (Auto) 0.4 0-1.3 10 ^3/uL Eosinophils # (Auto) 0 0-0.8 10 ^3/uL Basophils # (Auto) 0 0-0.2 10 ^3/uL Nucleated Red Blood Cells 0.1 % Sodium Level 131 L 136-145 mmol/L Potassium Level 5.8 *H 3.5-5.1 mmol/L Chloride Level 104 98-107 mmol/L Carbon Dioxide Level < 10 *L 20-31 mmol/L Anion Gap 17.49609 H 5-15 Blood Urea Nitrogen 71 H 9-23 mg/dL Creatinine 4.10 H 0.700-1.30 mg/dL Glomerular Filtration Rate Calc 15 >90 mL/min BUN/Creatinine Ratio 17.3 10.0-20.0 Serum Glucose 154 H 74-106 mg/dL Calcium Level 9.8 8.7-10.4 mg/dL Total Bilirubin 0.5 0.2-1.0 mg/dL Aspartate Amino Transferase (AST) 21 13-40 U/L Alanine Aminotransferase (ALT) 20 7-40 U/L Alkaline Phosphatase 115 46-116 U/L B-Type Natriuretic Peptide 90.89 0-100 pg/mL Total Protein 9.1 H 5.7-8.2 g/dL Albumin 4.3 3.2-4.8 g/dL Assessment/Plan Assessment/Plan Assessment Acute on chronic renal failure Paralytic ileus Diabetes mellitus Hypokalemia Hypotension ? Early sepsis Admit the patient to ICU to the hospitalist Continue Levophed drip Blood cultures pending Rocephin Surgical consultation Nephrology consult NPO Continue treatment per orders. Total critical care time excluding procedures performed this 50 minutes. Plan discussed with: Patient My Orders Orders - MEGAN WEBB AGACN Procedure Category Date Status Time Blood Culture DANNY 10/22/24 Logged 06:32 Ceftriaxone 1gm/50ml PHA 10/22/24 In Process D5w (Rocephin) 09:00 *[facility] CONS 10/22/24 Transmitted -[place] 06:32 Glucose Blood PHA 10/22/24 In Process (Accu-Chek Comfort 12:00 Insulin R (Human) PHA 10/22/24 In Process (Insulin R) 12:00 Dextrose 50% Syringe PHA 10/22/24 In Process 06:45 Admit ADMIT 10/22/24 Transmitted 06:32 Sodium Chloride 0.9% PHA 10/22/24 In Process 06:45 Ondansetron Hcl PHA 10/22/24 In Process (Zofran) 06:45 Complete Blood Count LAB 10/23/24 Verified 04:00 Comprehensive LAB 10/23/24 Verified Metabolic Panel 04:00 Npo (Nothing By DIET 10/22/24 Transmitted Mouth) Diet Breakfast Condition: Critical [facility] 10/22/24 In Process 06:32 Bedrest With Bathroom [facility] 10/22/24 In Process Privileg 06:32 Morphine Sulfate [facility] 10/22/24 In Process Injection 06:45 Nitroglycerin [facility] 10/22/24 In Process Sublingual (Ntrostat 06:45 Morphine Sulfate [facility] 10/22/24 In Process Injection 06:45 Stat Ekg For Chest [facility] 10/22/24 In Process Pain 06:32 Notify Of Changes [facility] 10/22/24 In Process From Base 06:32 Tableau Developer For [facility] 10/22/24 In Process 24 Hours 06:32 Emergency Dysrhythmia [facility] 10/22/24 In Process Protocol 06:32 Rhythm Strips Once [facility] 10/22/24 In Process Every Shift 06:32 Oxygen By Nasal RT 10/22/24 Transmitted Cannula 06:32 Date of Service: Oct 22, 2024 Billing Provider: MEGAN WEBB Common Visit Codes: [id number] CARE 30-74 MIN MEGAN WEBB Oct 22, 2024 06:59
[2024-10-22] MEDS: SODIUM CHLORIDE 0.9% 1,000 ML IV SCH (07:07)
[2024-10-22 07:40] VITALS: PULSE 97; RESP 21; O2SAT 97
[2024-10-22] MEDS: cefTRIAXone 1GM/50ML D5W 50 ML IV SCH (09:37)
[2024-10-22] MEDS: cefTRIAXone 1GM/50ML D5W 0 ML IV ONE (09:39)
[2024-10-22 11:57] LABS: Alanine Aminotransferase 20 U/L (7-40); Albumin 3.7 g/dL (3.2-4.8); Alkaline Phosphatase 96 U/L (46-116); Anion Gap 19.00001 (5-15); Aspartate Aminotransferase 20 U/L (13-40); BUN/Creatinine Ratio 19.7 (10.0-20.0); Bilirubin, Total 0.4 mg/dL (0.2-1.0); Calcium 9.4 mg/dL (8.7-10.4); Chloride 104 mmol/L (98-107); Potassium 4.3 mmol/L (3.5-5.1); Sodium 133 mmol/L (136-145); Total Protein 7.8 g/dL (5.7-8.2)
[2024-10-22] MEDS: InsuLIN REG 1unit/0.01ml Soln (100units/ml) SC SCH (11:57)
[2024-10-22] MEDS: ACCU-CHEK COMFORT CURVE STRIP VI SCH (11:57)
[2024-10-22 11:59] LABS: Glucose 269 mg/dL (74-106)
[2024-10-22 12:00] LABS: Blood Urea Nitrogen 83 mg/dL (9-23); Carbon Dioxide < 10 mmol/L (20-31)
--- NOTE | 2024-10-22 12:35 | DVHINCON2 ---
Date of service: Oct 22, [address] Roldan Reason for Consultation Acute kidney injury History of Present Illness Patient is a 72-year-old male with past medical history of diabetes mellitus type 2, hypertension, CVA, peripheral arterial disease and chronic kidney disease is admitted for generalized weakness. On admission patient found to have elevated BUN creatinine nephrology is consulted Past Medical History PAST MEDICAL HISTORY: CKF, DM, HTN, CVA, peripheral arterial disease Past Surgical History Surgical History: BKA Allergies: Coded Allergies: NO KNOWN ALLERGIES (Unverified , 06/07/24) Home Meds No Active Prescriptions or Reported Meds Current Medications Current Medications Medications (Trade) Dose Ordered Sig/Darvin Route PRN Reason Start Time Stop Time Status Last Admin Norepinephrine Bitartrate 250 ml @ 3.75 mls/hr Q24H IV 10/22/24 05:45 10/22/24 13:49 Ceftriaxone Sodium 50 ml @ 100 mls/hr DAILY@09 IV 10/22/24 09:00 10/22/24 09:45 DC 10/22/24 09:37 Diagnostic Test (Pha) (Accu-Chek Comfort Curve T) 1 strip Q6HR 10/22/24 12:00 10/22/24 11:57 Insulin Human Regular (InsuLIN R) Q6HR SC 10/22/24 12:00 Dextrose 50 ml UD PRN IV Blood Sugar LESS THAN 60 10/22/24 06:45 Sodium Chloride 1,000 ml @ 65 mls/hr [id number] IV 10/22/24 06:45 10/22/24 12:28 DC 10/22/24 07:07 Ondansetron HCl (Zofran) 4 mg Q4HP PRN IV NAUSEA / VOMITING 10/22/24 06:45 Morphine Sulfate 2 mg Q4HPRN PRN IV SEVERE PAIN (7-10 PAIN SCALE) 10/22/24 06:45 Nitroglycerin (Ntrostat Sublingual) 0.4 mg Q5MINP PRN SL FOR CHEST PAIN 10/22/24 06:45 Morphine Sulfate 2 mg Q30M PRN IV FOR CHEST PAIN 10/22/24 06:45 Ceftriaxone Sodium 50 ml @ 100 mls/hr DAILY@09 IV 10/23/24 09:00 Sodium Bicarbonate 50 ml/ Sodium Chloride 1,050 ml @ 100 mls/hr [id number] IV 10/22/24 12:30 10/22/24 13:18 Family History: Alcoholism G8 MOTHER, Onset:60 years & older G8 FATHER, Onset:60 years & older FH: alcoholism Review of Systems All 12 item review of systems reviewed with the patient nonsignificant except what is mentioned in the history of present illness H&P Exam Vital Signs/I&O Vital Sign Date Time Temp Pulse Resp B/P (MAP) Pulse Ox O2 Delivery O2 Flow Rate FiO2 10/22/24 16:00 99 10/22/24 14:45 22 109/56 (73) 85 10/22/24 07:40 97.3 97.3 10/22/24 07:40 Nasal Cannula* 2 28 Intake and Output 10/21/24 10/22/24 19:00 07:00 Intake Total 68.675 ml Balance 68.675 ml Intake IV Total 68.675 ml Physical Exam Patient awake, in no acute distress Lung: clear b/l COR: RRR GI: BS+ NL Ext: no CCE NeuroNo focal Labs/Diagnostic Data Labs/Diagnostic Data Laboratory Tests Test 10/22/24 15:13 10/22/24 13:02 10/22/24 12:50 10/22/24 11:49 Range/Units Lactic Acid Level 1.8 2.2 *H 0.4-2.0 mmol/L Urine Creatinine 96.87 30.0-125.0 mg/dL Urine Protein/Creatinine Ratio 1.45 Urine Sodium 36 L 40-220 mmol/L Urine Total Protein 140.0 H 1-14 mg/dL POC Glucose 130 H 70-106 mg/dl Test 10/22/24 05:57 10/22/24 05:51 10/22/24 05:31 10/22/24 05:26 Range/Units Sodium Level 133 L 136-145 mmol/L Potassium Level 4.3 3.5-5.1 mmol/L Chloride Level 104 98-107 mmol/L Carbon Dioxide Level < 10 *L 20-31 mmol/L Anion Gap 19.69750 H 5-15 Blood Urea Nitrogen 83 #*H 9-23 mg/dL Creatinine 4.21 H 0.700-1.30 mg/dL Glomerular Filtration Rate Calc 14 >90 mL/min BUN/Creatinine Ratio 19.7 10.0-20.0 Serum Glucose 269 #H 74-106 mg/dL Hemoglobin A1c 5.8 H <5.7 % A1C Uric Acid 10.3 H 3.7-9.2 mg/dL Calcium Level 9.4 8.7-10.4 mg/dL Phosphorus Level 5.6 H 2.4-5.1 mg/dL Magnesium Level 2.2 1.6-2.6 mg/dL Total Bilirubin 0.4 0.2-1.0 mg/dL Aspartate Amino Transferase (AST) 20 13-40 U/L Alanine Aminotransferase (ALT) 20 7-40 U/L Alkaline Phosphatase 96 46-116 U/L Total Protein 7.8 5.7-8.2 g/dL Albumin 3.7 3.2-4.8 g/dL Beta-Hydroxybutyric Acid 0.266 < 0.4 mmol/L Hepatitis B Surface Antigen Negative Negative Hepatitis C Antibody Negative Negative Lactic Acid Level 6.6 *H 0.4-2.0 mmol/L POC Glucose 273 H 70-106 mg/dl Urine Color Yellow Yellow Urine Clarity Clear Clear Urine pH 5.0 5.0-9.0 Urine Specific [place] 1.015 1.001-1.035 Urine Protein 1+ H Negative Urine Ketones Negative Negative Urine Blood Negative Negative /uL Urine Nitrite Negative Negative Urine Bilirubin Negative Negative Urine Urobilinogen Normal Negative mg/dL Urine Leukocyte Esterase Negative Negative /uL Urine RBC <1 0 - 3 /hpf Urine WBC <1 0 - 3 /hpf Urine Squamous Epithelial Cells None seen <5 /hpf Urine Amorphous Crystals Few None Seen /hpf Urine Bacteria None seen None Seen /hpf Urine Glucose Trace Normal mg/dL Test 10/22/24 03:40 10/22/24 02:25 Range/Units Troponin I High Sensitivity 15 14 </=54 ng/L White Blood Count 6.0 4.4-10.8 10^3/uL Red Blood Count 3.61 L 4.5-5.90 10^6/uL Hemoglobin 11.3 L 13.5-17.5 g/dL Hematocrit 35.6 L 41.0-53.0 % Mean Corpuscular Volume 98.7 80.0-100.0 fL Mean Corpuscular Hemoglobin 31.3 28.0-32.0 pg Mean Corpuscular Hemoglobin Concent 31.7 L 32.0-36.0 g/dL Red Cell Distribution Width 14.5 H 11.8-14.3 % Platelet Count 240 140-450 10^3/uL Mean Platelet Volume 7.6 6.9-10.8 fL Neutrophils (%) (Auto) 83.0 H 37.0-80.0 % Lymphocytes (%) (Auto) 9.5 L 10.0-50.0 % Monocytes (%) (Auto) 7.3 0.0-12.0 % Eosinophils (%) (Auto) 0.1 0.0-7.0 % Basophils (%) (Auto) 0.1 0.0-2.0 % Neutrophils # (Auto) 5.0 1.6-8.6 10 ^3/uL Lymphocytes # (Auto) 0.6 0.4-5.4 10 ^3/uL Monocytes # (Auto) 0.4 0-1.3 10 ^3/uL Eosinophils # (Auto) 0 0-0.8 10 ^3/uL Basophils # (Auto) 0 0-0.2 10 ^3/uL Nucleated Red Blood Cells 0.1 % Sodium Level 131 L 136-145 mmol/L Potassium Level 5.8 *H 3.5-5.1 mmol/L Chloride Level 104 98-107 mmol/L Carbon Dioxide Level < 10 *L 20-31 mmol/L Anion Gap 17.43462 H 5-15 Blood Urea Nitrogen 71 H 9-23 mg/dL Creatinine 4.10 H 0.700-1.30 mg/dL Glomerular Filtration Rate Calc 15 >90 mL/min BUN/Creatinine Ratio 17.3 10.0-20.0 Serum Glucose 154 H 74-106 mg/dL Lactic Acid Level 3.6 *H 0.4-2.0 mmol/L Calcium Level 9.8 8.7-10.4 mg/dL Total Bilirubin 0.5 0.2-1.0 mg/dL Aspartate Amino Transferase (AST) 21 13-40 U/L Alanine Aminotransferase (ALT) 20 7-40 U/L Alkaline Phosphatase 115 46-116 U/L B-Type Natriuretic Peptide 90.89 0-100 pg/mL Total Protein 9.1 H 5.7-8.2 g/dL Albumin 4.3 3.2-4.8 g/dL Assessment Acute kidney injury superimposed Chronic Kidney Disease secondary hemodynamic mediated Diabetes mellitus type 2 Hyperglycemia Hyperkalemia Sepsis Hypotension Anemia of chronic kidney disease Recommendations Closely monitor fluid and electrolytes Avoid nephrotoxic medications Desir catheter Strict I&Os Check urine electrolytes and protein excretion Check kidney ultrasound IV fluid hydration with bicarb Insulin sliding scale IV antibiotics We will continue to follow Patient seen and examined by myself in the ER. I discussed my plan of care with the patient and the primary nurse I would like to thank Dr. Roldan for the consult, will follow Plan discussed with: Patient ALINE SCOTT MD Oct 22, 2024 12:35
[2024-10-22 13:12] LABS: Hepatitis B Surface Antigen Negative (Negative)
[2024-10-22 13:18] LABS: Uric Acid 10.3 mg/dL (3.7-9.2)
[2024-10-22] MEDS: SODIUM BICARB 50mEq/50ml Vial 50 ML in SOD CHL 0.45% 1,000 ML IV SCH (13:18)
[2024-10-22 13:19] LABS: Magnesium 2.2 mg/dL (1.6-2.6)
[2024-10-22 13:20] LABS: Creatinine, Urine 96.87 mg/dL (30.0-125.0); Urine Protein/Creatinine Ratio 1.45
[2024-10-22 13:21] LABS: Phosphorus 5.6 mg/dL (2.4-5.1)
--- NOTE | 2024-10-22 13:21 | DVHPN2 ---
Reviewed: Care Plan, H&P, Labs, Medications, Previous Orders, Radiology Changes from previous H/P or p: No Changes Objective Vitals Vital Signs Date Time Temp Pulse Resp B/P (MAP) Pulse Ox O2 Delivery O2 Flow Rate FiO2 10/22/24 12:45 103 21 107/58 (74) 85 10/22/24 07:40 97.3 97.3 10/22/24 07:40 Nasal Cannula* 2 28 Intake/Output Intake and Output 10/22/24 06:59 Intake Total 68.675 ml Balance 68.675 ml Intake IV Total 68.675 ml Medications Current Medications Medications Dose Ordered Sig/Darvin Route Start Time Stop Time Status Last Admin Dose Admin Norepinephrine Bitartrate 250 ml @ 3.75 mls/hr Q24H IV 10/22/24 05:45 10/22/24 05:47 3.75 MLS/HR Diagnostic Test (Pha) 1 strip Q6HR 10/22/24 12:00 10/22/24 11:57 1 STRIP Insulin Human Regular Q6HR SC 10/22/24 12:00 Dextrose 50 ml UD PRN IV 10/22/24 06:45 Ondansetron HCl 4 mg Q4HP PRN IV 10/22/24 06:45 Morphine Sulfate 2 mg Q4HPRN PRN IV 10/22/24 06:45 Nitroglycerin 0.4 mg Q5MINP PRN SL 10/22/24 06:45 Morphine Sulfate 2 mg Q30M PRN IV 10/22/24 06:45 Ceftriaxone Sodium 50 ml @ 100 mls/hr DAILY@09 IV 10/23/24 09:00 Sodium Bicarbonate 50 ml/ Sodium Chloride 1,050 ml @ 100 mls/hr [id number] IV 10/22/24 12:30 10/22/24 13:18 100 MLS/HR Laboratory Results Laboratory Tests 10/22/24 02:25 10/22/24 05:57 Chemistry Test 10/22/24 02:25 10/22/24 05:57 Albumin 4.3 g/dL (3.2-4.8) 3.7 g/dL (3.2-4.8) Calcium Level 9.8 mg/dL (8.7-10.4) 9.4 mg/dL (8.7-10.4) Total Protein 9.1 g/dL (5.7-8.2) H 7.8 g/dL (5.7-8.2) Magnesium Level 2.2 mg/dL (1.6-2.6) Phosphorus Level Pending Cardiac Markers Test 10/22/24 02:25 B-Type Natriuretic Peptide 90.89 pg/mL (0-100) LFT Test 10/22/24 02:25 10/22/24 05:57 Alanine Aminotransferase (ALT) 20 U/L (7-40) 20 U/L (7-40) Alkaline Phosphatase 115 U/L (46-116) 96 U/L (46-116) Aspartate Amino Transferase (AST) 21 U/L (13-40) 20 U/L (13-40) Total Bilirubin 0.5 mg/dL (0.2-1.0) 0.4 mg/dL (0.2-1.0) HgA1c, TSH Test 10/22/24 05:57 Hemoglobin A1c 5.8 % A1C (<5.7) H Urinalysis Test 10/22/24 05:26 10/22/24 12:50 Urine Color Yellow (Yellow) Urine Clarity Clear (Clear) Urine pH 5.0 (5.0-9.0) Urine Specific [place] 1.015 (1.001-1.035) Urine Protein 1+ (Negative) H Urine Ketones Negative (Negative) Urine Blood Negative /uL (Negative) Urine Nitrite Negative (Negative) Urine Bilirubin Negative (Negative) Urine Urobilinogen Normal mg/dL (Negative) Urine Leukocyte Esterase Negative /uL (Negative) Urine RBC <1 /hpf (0 - 3) Urine WBC <1 /hpf (0 - 3) Urine Squamous Epithelial Cells None seen /hpf (<5) Urine Amorphous Crystals Few /hpf (None Seen) Urine Bacteria None seen /hpf (None Seen) Urine Glucose Trace mg/dL (Normal) Urine Creatinine Pending Urine Protein/Creatinine Ratio Pending Urine Sodium Pending Urine Total Protein 140.0 mg/dL (1-14) H Labs and/or images reviewed: Labs reviewed by me, Image(s) reviewed by me Assessment/Plan Assessment/Plan Sepsis with the elevated white count hypotension unknown etiology: Blood cultures Rocephin Acute kidney injury superimposed Chronic Kidney Disease secondary hemodynamic mediated Diabetes mellitus type 2: Insulin sliding scale Acute Hyperglycemia Hyperkalemia Sepsis Acute Hypotension: Levophed drip Anemia of chronic kidney disease Metabolic acidosis: Bicarb drip Acute dehydration: IV fluids Time spent 65 minutes Condition guarded Patient is full code Advanced care planning time 20 minutes Left AMA during the previous visit Plan discussed with: Patient My Orders Orders - MIKAEL GAN MD Procedure Category Date Status Time *Dr. [facility] CONS 10/22/24 Transmitted -[place] 12:06 Parathyroid Hormone LAB 10/22/24 In Process Intact 05:57 Date of Service: Oct 22, 2024 Billing Provider: MIKAEL GAN MD Common Visit Codes: [id number] CARE 30-74 MIN MIKAEL GAN MD Oct 22, 2024 13:21
[2024-10-22 13:28] LABS: Creatinine, Urine 96.62 mg/dL (30.0-125.0)
[2024-10-22 13:33] LABS: Hepatitis C Antibody Negative (Negative)
[2024-10-22] MEDS: NOREPINEPHRINE 8 MG/250ML KIT 250 ML IV ONE (14:01)
[2024-10-22 14:03] LABS: Lactic Acid w/Reflex 2.2 mmol/L (0.4-2.0)
--- NOTE | 2024-10-22 18:02 | DVHINCON2 ---
GI Consult Consult Note Date of Consultation: 10/22/2024 Chief Complaint: Abdominal pain nausea and vomiting Referring Physician: Dr Roldan H&P: Patient is a 74-year-old male with a past medical history significant for hypertension, hyperlipidemia, diabetes, history of CVA, peripheral arterial disease and chronic kidney disease admitted with nausea vomiting and abdominal pain, imaging findings consistent with paralytic ileus. Patient denies any significant bowel movements or diarrhea. Patient has complaints of some abdominal distention. Patient states that he has these symptoms for the last few days. Past Medical History: As above Past Surgical History: BKA Social History: NO smoking, drinking ETOH and use of illegal drugs. Family History: Current Medications Medications (Trade) Dose Ordered Sig/Darvin Route PRN Reason Start Time Stop Time Status Last Admin Ceftriaxone Sodium 50 ml @ 100 mls/hr DAILY@09 IV 10/23/24 09:00 Dextrose 50 ml UD PRN IV Blood Sugar LESS THAN 60 10/22/24 06:45 Diagnostic Test (Pha) (Accu-Chek Comfort Curve T) 1 strip Q6HR 10/22/24 12:00 10/22/24 11:57 Insulin Human Regular (InsuLIN R) Q6HR SC 10/22/24 12:00 Morphine Sulfate 2 mg Q30M PRN IV FOR CHEST PAIN 10/22/24 06:45 Morphine Sulfate 2 mg Q4HPRN PRN IV SEVERE PAIN (7-10 PAIN SCALE) 10/22/24 06:45 Nitroglycerin (Ntrostat Sublingual) 0.4 mg Q5MINP PRN SL FOR CHEST PAIN 10/22/24 06:45 Norepinephrine Bitartrate 250 ml @ 3.75 mls/hr Q24H IV 10/22/24 05:45 10/22/24 13:49 Ondansetron HCl (Zofran) 4 mg Q4HP PRN IV NAUSEA / VOMITING 10/22/24 06:45 Sodium Bicarbonate 50 ml/ Sodium Chloride 1,050 ml @ 100 mls/hr [id number] IV 10/22/24 12:30 10/22/24 13:18 Review of Systems: Constitutional: no fever, chill, weight loss HEENT: no eye pain, no hearing loss, no oral lesion, no scleral icterus Heart: no chest pain, no chest pressure Lung: no cough, no dyspnea with exertion Abdomen: see HPI : no pain with urination, normal appearing urine Musculoskeletal: Wheelchair-bound Neurological: History of stroke s Pysch: no depression, no anxiety Derm: no rash, no jaundice Vital Signs Date Time Temp Pulse Resp B/P (MAP) Pulse Ox O2 Delivery O2 Flow Rate FiO2 10/22/24 17:00 101 23 110/58 (75) 85 10/22/24 07:40 97.3 97.3 10/22/24 07:40 Nasal Cannula* 2 28 Physical exam: General: NAD, AAOX3, disheveled-appearing HEENT: PERRL, no scleral icterus, normal hearing, gums without lesions or bleeding, oropharynx clear without erythema or exudate. Neck: Supple without enlargement of the thyroid, or lymphadenopathy. Chest: Normal size and shape, no tenderness, lung jewell clear to auscultation and percussion, nonlabored breathing. Heart: RRR, no murmur Abdomen: Mild left-sided tenderness to palpation no radiation, mildly distended hypoactive bowel sounds Extremities: no edema, no cyanosis Neurological: CN II-XII intact, sensation intact in all extremities, 5+ strength in all extremities, no asterixis Skin: No rashes, No jaundice Labs: Labs Test 10/22/24 15:13 10/22/24 12:50 10/22/24 11:49 10/22/24 05:57 Range/Units Lactic Acid Level 1.8 0.4-2.0 mmol/L Urine Creatinine 96.87 30.0-125.0 mg/dL Urine Protein/Creatinine Ratio 1.45 Urine Sodium 36 L 40-220 mmol/L Urine Total Protein 140.0 H 1-14 mg/dL POC Glucose 130 H 70-106 mg/dl Sodium Level 133 L 136-145 mmol/L Potassium Level 4.3 3.5-5.1 mmol/L Chloride Level 104 98-107 mmol/L Carbon Dioxide Level < 10 *L 20-31 mmol/L Anion Gap 19.03405 H 5-15 Blood Urea Nitrogen 83 #*H 9-23 mg/dL Creatinine 4.21 H 0.700-1.30 mg/dL Glomerular Filtration Rate Calc 14 >90 mL/min BUN/Creatinine Ratio 19.7 10.0-20.0 Serum Glucose 269 #H 74-106 mg/dL Hemoglobin A1c 5.8 H <5.7 % A1C Uric Acid 10.3 H 3.7-9.2 mg/dL Calcium Level 9.4 8.7-10.4 mg/dL Phosphorus Level 5.6 H 2.4-5.1 mg/dL Magnesium Level 2.2 1.6-2.6 mg/dL Total Bilirubin 0.4 0.2-1.0 mg/dL Aspartate Amino Transferase (AST) 20 13-40 U/L Alanine Aminotransferase (ALT) 20 7-40 U/L Alkaline Phosphatase 96 46-116 U/L Total Protein 7.8 5.7-8.2 g/dL Albumin 3.7 3.2-4.8 g/dL Beta-Hydroxybutyric Acid 0.266 < 0.4 mmol/L Hepatitis B Surface Antigen Negative Negative Hepatitis C Antibody Negative Negative Test 10/22/24 05:26 10/22/24 03:40 10/22/24 02:25 Range/Units Urine Color Yellow Yellow Urine Clarity Clear Clear Urine pH 5.0 5.0-9.0 Urine Specific [place] 1.015 1.001-1.035 Urine Protein 1+ H Negative Urine Ketones Negative Negative Urine Blood Negative Negative /uL Urine Nitrite Negative Negative Urine Bilirubin Negative Negative Urine Urobilinogen Normal Negative mg/dL Urine Leukocyte Esterase Negative Negative /uL Urine RBC <1 0 - 3 /hpf Urine WBC <1 0 - 3 /hpf Urine Squamous Epithelial Cells None seen <5 /hpf Urine Amorphous Crystals Few None Seen /hpf Urine Bacteria None seen None Seen /hpf Urine Glucose Trace Normal mg/dL Troponin I High Sensitivity 15 </=54 ng/L White Blood Count 6.0 4.4-10.8 10^3/uL Red Blood Count 3.61 L 4.5-5.90 10^6/uL Hemoglobin 11.3 L 13.5-17.5 g/dL Hematocrit 35.6 L 41.0-53.0 % Mean Corpuscular Volume 98.7 80.0-100.0 fL Mean Corpuscular Hemoglobin 31.3 28.0-32.0 pg Mean Corpuscular Hemoglobin Concent 31.7 L 32.0-36.0 g/dL Red Cell Distribution Width 14.5 H 11.8-14.3 % Platelet Count 240 140-450 10^3/uL Mean Platelet Volume 7.6 6.9-10.8 fL Neutrophils (%) (Auto) 83.0 H 37.0-80.0 % Lymphocytes (%) (Auto) 9.5 L 10.0-50.0 % Monocytes (%) (Auto) 7.3 0.0-12.0 % Eosinophils (%) (Auto) 0.1 0.0-7.0 % Basophils (%) (Auto) 0.1 0.0-2.0 % Neutrophils # (Auto) 5.0 1.6-8.6 10 ^3/uL Lymphocytes # (Auto) 0.6 0.4-5.4 10 ^3/uL Monocytes # (Auto) 0.4 0-1.3 10 ^3/uL Eosinophils # (Auto) 0 0-0.8 10 ^3/uL Basophils # (Auto) 0 0-0.2 10 ^3/uL Nucleated Red Blood Cells 0.1 % B-Type Natriuretic Peptide 90.89 0-100 pg/mL Imaging: Findings consistent with ileus with decompression of distal colon dilation of small bowel Assessment: # ileus versus obstruction # abdominal pain #anemia Plan: 1. Follow electrolytes and replace 2. Keep the patient NPO for now 3. Follow labs 4, hold off on EGD and colonoscopy at this time 5. We will follow up Date of Service: Oct 22, 2024 Billing Provider: ESDRAS TORRES MD Common Visit Codes: [id number] INP/OBS CARE (HIGH) Consultation Codes: [id number] CONSULT <60MIN ESDRAS TORRES MD Oct 22, 2024 18:02
[2024-10-22 19:30] VITALS: PULSE 100; RESP 19; O2SAT 97
[2024-10-23 04:58] LABS: Hematocrit 26.6 % (41.0-53.0); Hemoglobin 8.7 g/dL (13.5-17.5); Mean Corpuscular Hgb Conc. 32.8 g/dL (32.0-36.0); Mean Corpuscular Volume 94.7 fL (80.0-100.0); Platelet Count (auto) 220 10^3/uL (140-450); Red Blood Cells 2.81 10^6/uL (4.5-5.90); Red Cell Distribution Width 13.9 % (11.8-14.3)
[2024-10-23 05:13] LABS: Alanine Aminotransferase 14 U/L (7-40); Alkaline Phosphatase 80 U/L (46-116); Anion Gap 14 (5-15); Aspartate Aminotransferase 21 U/L (13-40); BUN/Creatinine Ratio 25.1 (10.0-20.0); Bilirubin, Total 0.2 mg/dL (0.2-1.0); Calcium 7.9 mg/dL (8.7-10.4); Carbon Dioxide 14 mmol/L (20-31); Chloride 109 mmol/L (98-107); Glucose 98 mg/dL (74-106); Potassium 4.2 mmol/L (3.5-5.1); Sodium 137 mmol/L (136-145); Total Protein 6.3 g/dL (5.7-8.2)
[2024-10-23 05:27] LABS: Blood Urea Nitrogen 92 mg/dL (9-23)
[2024-10-23 05:30] LABS: Basophils % (manual) 0 (0.0-2.0); Blast Cells 0; Metamyelocytes % 0; Promyelocytes % 0; Reactive Lymphocytes 0
[2024-10-23 06:20] LABS: Band Neutrophils % (manual) 14; Eosinophils % (manual) 2 (0-7); Lymphocytes % (manual) 11 (10.0-50.0); Monocytes % (manual) 12 (0-12); Myelocytes % 1; Platelet Estimate Adequate
[2024-10-23 08:10] VITALS: PULSE 88; RESP 21; O2SAT 96
[2024-10-23] MEDS: cefTRIAXone 1GM/50ML D5W 50 ML IV SCH (09:11)
[2024-10-23] MEDS ORDERED: SODIUM BICARB 50mEq/50ml Vial 50 ML in SOD CHL 0.45% 1,000 ML IV SCH (11:15)
[2024-10-23] MEDS ORDERED: DEXTROSE (50%) 50ML SYRG IV PRN (11:15)
[2024-10-23] MEDS: NOREPINEPHRINE 8 MG/250ML KIT 250 ML IV SCH (11:15)
[2024-10-23] MEDS ORDERED: NITROGLYCERIN 0.4 MG SL TAB SL PRN (11:15)
[2024-10-23] MEDS ORDERED: SODIUM BICARB 50mEq/50ml Vial 100 ML in SOD CHL 0.45% 1,000 ML IV SCH (11:15)
[2024-10-23] MEDS ORDERED: MORPHINE SULFATE INJ 2 MG/ml SYRG IV PRN (11:15)
[2024-10-23] MEDS: ONDANSETRON HCL 4 MG/2 ML VIAL IV PRN (11:41)
[2024-10-23] MEDS: MORPHINE SULFATE INJ 2 MG/ml SYRG IV PRN (11:41)
[2024-10-23] MEDS: InsuLIN REG 1unit/0.01ml Soln (100units/ml) SC SCH (12:00)
[2024-10-23] MEDS ORDERED: SODIUM BICARB IV SCH (12:15)
[2024-10-23] MEDS ORDERED: D5 IV SCH (12:15)
[2024-10-23] MEDS ORDERED: SOD CHL IV SCH (12:15)
[2024-10-23] MEDS: ACCU-CHEK COMFORT CURVE STRIP VI SCH (12:25)
--- NOTE | 2024-10-23 12:52 | DVHPN2 ---
Reviewed: Care Plan, H&P, Labs, Medications, Previous Orders, Radiology Changes from previous H/P or p: No Changes Objective Vitals Vital Signs Date Time Temp Pulse Resp B/P (MAP) Pulse Ox O2 Delivery O2 Flow Rate FiO2 10/23/24 12:11 81 22 98/51 10/23/24 09:30 96 10/23/24 08:10 Room Air* 0 21 10/23/24 08:10 97.8 97.8 Intake/Output Intake and Output 10/23/24 07:00 Intake Total 3495.25 ml Output Total 450 ml Balance 3045.25 ml Intake IV Total 3495.25 ml Output Urine Total 450 ml Medications Current Medications Medications Dose Ordered Sig/Darvin Route Start Time Stop Time Status Last Admin Dose Admin Ceftriaxone Sodium 50 ml @ 100 mls/hr DAILY@09 IV 10/23/24 09:00 10/23/24 09:11 100 MLS/HR Norepinephrine Bitartrate 250 ml @ 3.75 mls/hr Q24H IV 10/23/24 11:15 Diagnostic Test (Pha) 1 strip Q6HR 10/23/24 12:00 10/23/24 12:25 1 STRIP Insulin Human Regular Q6HR SC 10/23/24 12:00 Dextrose 50 ml UD PRN IV 10/23/24 11:15 Ondansetron HCl 4 mg Q4HP PRN IV 10/23/24 11:15 10/23/24 11:41 4 MG Morphine Sulfate 2 mg Q4HPRN PRN IV 10/23/24 11:15 10/23/24 11:41 2 MG Nitroglycerin 0.4 mg Q5MINP PRN SL 10/23/24 11:15 Morphine Sulfate 2 mg Q30M PRN IV 10/23/24 11:15 Sodium Bicarbonate 100 ml/Dextrose/ Sodium Chloride 1,100 ml @ 120 mls/hr Q9H10M IV 10/23/24 12:45 UNV Laboratory Results Laboratory Tests 10/23/24 04:25 Chemistry Test 10/23/24 04:25 Albumin 3.0 g/dL (3.2-4.8) L Calcium Level 7.9 mg/dL (8.7-10.4) L Total Protein 6.3 g/dL (5.7-8.2) LFT Test 10/23/24 04:25 Alanine Aminotransferase (ALT) 14 U/L (7-40) Alkaline Phosphatase 80 U/L (46-116) Aspartate Amino Transferase (AST) 21 U/L (13-40) Total Bilirubin 0.2 mg/dL (0.2-1.0) Urinalysis Test 10/22/24 05:26 10/22/24 12:50 Urine Color Yellow (Yellow) Urine Clarity Clear (Clear) Urine pH 5.0 (5.0-9.0) Urine Specific [place] 1.015 (1.001-1.035) Urine Protein 1+ (Negative) H Urine Ketones Negative (Negative) Urine Blood Negative /uL (Negative) Urine Nitrite Negative (Negative) Urine Bilirubin Negative (Negative) Urine Urobilinogen Normal mg/dL (Negative) Urine Leukocyte Esterase Negative /uL (Negative) Urine RBC <1 /hpf (0 - 3) Urine WBC <1 /hpf (0 - 3) Urine Squamous Epithelial Cells None seen /hpf (<5) Urine Amorphous Crystals Few /hpf (None Seen) Urine Bacteria None seen /hpf (None Seen) Urine Glucose Trace mg/dL (Normal) Urine Creatinine 96.87 mg/dL (30.0-125.0) Urine Protein/Creatinine Ratio 1.45 Urine Sodium 36 mmol/L (40-220) L Urine Total Protein 140.0 mg/dL (1-14) H Microbiology Microbiology Date/Time Source Procedure Growth Status 10/22/24 07:58 Blood Blood Culture - Preliminary NO GROWTH AFTER 24 HOURS OF INCUBATION. Resulted Labs and/or images reviewed: Labs reviewed by me, Image(s) reviewed by me Assessment/Plan Assessment/Plan Sepsis with elevated white count hypotension unknown etiology: Blood cultures, continue Rocephin Small-bowel ileus, NG suction IV fluids, GI consult by Dr Roxie Coy appreciated Acute kidney injury superimposed Chronic Kidney Disease secondary hemodynamic mediated nephrology consult by appreciated Diabetes mellitus type 2: Insulin sliding scale Acute Hyperglycemia Hyperkalemia Sepsis Acute Hypotension: Levophed drip Anemia of chronic kidney disease Acute Metabolic acidosis: Bicarb drip Acute dehydration: IV fluids Time spent 65 minutes Condition guarded Patient is full code Advanced care planning time 20 minutes Left AMA during the previous visit Plan discussed with: Patient My Orders Orders - MIKAEL GAN MD Procedure Category Date Status Time * Gi [facility] [employer] CONS 10/22/24 Transmitted 13:25 Date of Service: Oct 23, 2024 Billing Provider: MIKAEL GAN MD Common Visit Codes: [id number] CARE 30-74 MIN MIKAEL GAN MD Oct 23, 2024 12:52
--- NOTE | 2024-10-23 13:05 | DVHPN2 ---
Progress Note Date Seen: Oct 23, 2024 Medical Necessity Reason Pt with a Central, PICC or Fol: No Subjective Patient reports: No new complaints Other Systems: Patient seen and examined by myself today in follow-up Objective vital signs Vital Sign Date Time Temp Pulse Resp B/P (MAP) Pulse Ox O2 Delivery O2 Flow Rate FiO2 10/23/24 12:11 81 22 98/51 10/23/24 09:30 96 10/23/24 08:10 Room Air* 0 21 10/23/24 08:10 97.8 97.8 Total Intake and Output 10/22/24 10/22/24 10/23/24 15:00 23:00 07:00 Intake Total 1787.15 ml 833.10 ml 875.00 ml Output Total 450 ml Balance 1337.15 ml 833.10 ml 875.00 ml medications Current Medications Medications Dose Ordered Sig/Darvin Route Start Time Stop Time Status Last Admin Dose Admin Ceftriaxone Sodium 50 ml @ 100 mls/hr DAILY@09 IV 10/23/24 09:00 10/23/24 09:11 100 MLS/HR Norepinephrine Bitartrate 250 ml @ 3.75 mls/hr Q24H IV 10/23/24 11:15 Diagnostic Test (Pha) 1 strip Q6HR 10/23/24 12:00 10/23/24 12:25 1 STRIP Insulin Human Regular Q6HR SC 10/23/24 12:00 Dextrose 50 ml UD PRN IV 10/23/24 11:15 Ondansetron HCl 4 mg Q4HP PRN IV 10/23/24 11:15 10/23/24 11:41 4 MG Morphine Sulfate 2 mg Q4HPRN PRN IV 10/23/24 11:15 10/23/24 11:41 2 MG Nitroglycerin 0.4 mg Q5MINP PRN SL 10/23/24 11:15 Morphine Sulfate 2 mg Q30M PRN IV 10/23/24 11:15 Sodium Bicarbonate 100 ml/Dextrose/ Sodium Chloride 1,100 ml @ 120 mls/hr Q9H10M IV 10/23/24 12:45 UNV Examination: LUNGS:Normal, CVS:Normal, MSK:Normal laboratory and microbiology Laboratory Tests 10/23/24 04:25 Test 10/23/24 04:25 Range/Units Serum Glucose 98 # 74-106 mg/dL Microbiology Date/Time Source Procedure Growth Status 10/22/24 07:58 Blood Blood Culture - Preliminary NO GROWTH AFTER 24 HOURS OF INCUBATION. Resulted Problem List/Assessment/Plan Problem List/Assessment/Plan Acute kidney injury superimposed Chronic Kidney Disease secondary hemodynamic mediated, feNa > 2% Diabetes mellitus type 2 Hyperglycemia Hyperkalemia Sepsis Hypotension Metabolic acidosis Anemia of chronic kidney disease Recommendations Kidney function is improving Increased urine output Desir catheter Strict I&Os Kidneys reported within normal limit on CT scan of abdomen IV fluid hydration with bicarb Insulin sliding scale IV antibiotics We will continue to follow Plan discussed with: Patient My Orders My Orders Orders - ALINE SCOTT MD Procedure Category Date Status Time D5w/Sod Chl 0.45% PHA 10/23/24 Logged (... W/Sodium Bicarb 5 12:45 ALINE SCOTT MD Oct 23, 2024 13:05
--- NOTE | 2024-10-23 14:12 | DVHPN2 ---
Subjective Patient admits to improved abdominal pain No nausea or vomiting Small bowel movement today, no melena or red blood in stool Patient has rash the rectal perineal area, and has pain No colonoscopy in past Reviewed: Care Plan, H&P, Labs, Medications, Previous Orders, Radiology Changes from previous H/P or p: No Changes Objective Vitals Vital Signs Date Time Temp Pulse Resp B/P (MAP) Pulse Ox O2 Delivery O2 Flow Rate FiO2 10/23/24 12:30 80 17 98/51 (67) 97 10/23/24 08:10 Room Air* 0 21 10/23/24 08:10 97.8 97.8 Intake/Output Intake and Output 10/23/24 07:00 Intake Total 3495.25 ml Output Total 450 ml Balance 3045.25 ml Intake IV Total 3495.25 ml Output Urine Total 450 ml General Appearance: Alert, Oriented X3, Cooperative, No acute distress, mild distress, moderate distress, severe distress, Other Lungs: Clear to auscultation, Normal air movement, Other Cardiovascular: Regular rate, Normal S1, Normal S2, No murmurs, Gallops, Rubs, Other Abdomen: Normal bowel sounds (Decreased bowel sounds), Soft, No tenderness, No hepatospenomegaly, No masses, Other Medications Current Medications Medications Dose Ordered Sig/Darvin Route Start Time Stop Time Status Last Admin Dose Admin Ceftriaxone Sodium 50 ml @ 100 mls/hr DAILY@09 IV 10/23/24 09:00 10/23/24 09:11 100 MLS/HR Norepinephrine Bitartrate 250 ml @ 3.75 mls/hr Q24H IV 10/23/24 11:15 Diagnostic Test (Pha) 1 strip Q6HR 10/23/24 12:00 10/23/24 12:25 1 STRIP Insulin Human Regular Q6HR SC 10/23/24 12:00 Dextrose 50 ml UD PRN IV 10/23/24 11:15 Ondansetron HCl 4 mg Q4HP PRN IV 10/23/24 11:15 10/23/24 11:41 4 MG Morphine Sulfate 2 mg Q4HPRN PRN IV 10/23/24 11:15 10/23/24 11:41 2 MG Nitroglycerin 0.4 mg Q5MINP PRN SL 10/23/24 11:15 Morphine Sulfate 2 mg Q30M PRN IV 10/23/24 11:15 Sodium Bicarbonate 100 ml/Dextrose/ Sodium Chloride 1,100 ml @ 120 mls/hr Q9H10M IV 10/23/24 12:45 Laboratory Results Laboratory Tests 10/23/24 04:25 Chemistry Test 10/23/24 04:25 Albumin 3.0 g/dL (3.2-4.8) L Calcium Level 7.9 mg/dL (8.7-10.4) L Total Protein 6.3 g/dL (5.7-8.2) LFT Test 10/23/24 04:25 Alanine Aminotransferase (ALT) 14 U/L (7-40) Alkaline Phosphatase 80 U/L (46-116) Aspartate Amino Transferase (AST) 21 U/L (13-40) Total Bilirubin 0.2 mg/dL (0.2-1.0) Urinalysis Test 10/22/24 05:26 10/22/24 12:50 Urine Color Yellow (Yellow) Urine Clarity Clear (Clear) Urine pH 5.0 (5.0-9.0) Urine Specific [place] 1.015 (1.001-1.035) Urine Protein 1+ (Negative) H Urine Ketones Negative (Negative) Urine Blood Negative /uL (Negative) Urine Nitrite Negative (Negative) Urine Bilirubin Negative (Negative) Urine Urobilinogen Normal mg/dL (Negative) Urine Leukocyte Esterase Negative /uL (Negative) Urine RBC <1 /hpf (0 - 3) Urine WBC <1 /hpf (0 - 3) Urine Squamous Epithelial Cells None seen /hpf (<5) Urine Amorphous Crystals Few /hpf (None Seen) Urine Bacteria None seen /hpf (None Seen) Urine Glucose Trace mg/dL (Normal) Urine Creatinine 96.87 mg/dL (30.0-125.0) Urine Protein/Creatinine Ratio 1.45 Urine Sodium 36 mmol/L (40-220) L Urine Total Protein 140.0 mg/dL (1-14) H Microbiology Microbiology Date/Time Source Procedure Growth Status 10/22/24 07:58 Blood Blood Culture - Preliminary NO GROWTH AFTER 24 HOURS OF INCUBATION. Resulted Labs and/or images reviewed: Labs reviewed by me, Image(s) reviewed by me Assessment/Plan Assessment/Plan Abdominal pain improving Ileus versus obstruction Anemia Plan: Discussed with Dr. Horton Clear liquid diet Monitor labs We will continue to monitor the patient Plan discussed with: Patient, Other (RN) My Orders Orders - JIMBO GAN Procedure Category Date Status Time Clear Liq Diet DIET 10/23/24 Transmitted Lunch Date of Service: Oct 23, 2024 Billing Provider: JIMBO GAN Common Visit Codes: [id number] INP/OBS CARE(HIGH) JIMBO GAN Oct 23, 2024 14:12
[2024-10-23] MEDS: SODIUM BICARB IV SCH (16:58)
[2024-10-23] MEDS: SOD CHL IV SCH (16:58)
[2024-10-23] MEDS: D5 IV SCH (16:58)
[2024-10-23 20:00] VITALS: PULSE 85; RESP 20; O2SAT 98
[2024-10-23 21:30] VITALS: PULSE 80; RESP 16; O2SAT 99
[2024-10-24] VITALS (18 sets, daily range): BP systolic 97–122; BP diastolic 54–68; PULSE 71–85; RESP 14–22; TEMP 97.5–98.7; O2SAT 96–99
[2024-10-24] MEDS: D5W IV ONE (10:02)
[2024-10-24] MEDS: CEFTRIAXONE 2 GM/50 ML IV ONE (10:02)
--- NOTE | 2024-10-24 12:10 | DVHPN2 ---
Progress Note Date Seen: Oct 24, 2024 Medical Necessity Reason Pt with a Central, PICC or Fol: No Subjective Patient reports: No new complaints Other Systems: Patient seen and examined by myself today in follow-up Objective vital signs Vital Sign Date Time Temp Pulse Resp B/P (MAP) Pulse Ox O2 Delivery O2 Flow Rate FiO2 10/24/24 10:24 97.7 83 16 104/57 (73) 98 97.7 10/23/24 21:30 Nasal Cannula* 2 28 Total Intake and Output 10/23/24 10/23/24 10/24/24 15:00 23:00 07:00 Intake Total 860.875 ml 1040 ml 960 ml Output Total 1000 ml Balance -139.125 ml 1040 ml 960 ml medications Current Medications Medications Dose Ordered Sig/Darvin Route Start Time Stop Time Status Last Admin Dose Admin Ceftriaxone Sodium 50 ml @ 100 mls/hr DAILY@09 IV 10/23/24 09:00 10/24/24 09:47 100 MLS/HR Diagnostic Test (Pha) 1 strip Q6HR 10/23/24 12:00 10/24/24 05:34 1 STRIP Insulin Human Regular Q6HR SC 10/23/24 12:00 Dextrose 50 ml UD PRN IV 10/23/24 11:15 Ondansetron HCl 4 mg Q4HP PRN IV 10/23/24 11:15 10/23/24 11:41 4 MG Morphine Sulfate 2 mg Q4HPRN PRN IV 10/23/24 11:15 10/23/24 11:41 2 MG Nitroglycerin 0.4 mg Q5MINP PRN SL 10/23/24 11:15 Morphine Sulfate 2 mg Q30M PRN IV 10/23/24 11:15 Sodium Bicarbonate 100 ml/Dextrose/ Sodium Chloride 1,100 ml @ 120 mls/hr Q9H10M IV 10/23/24 12:45 10/24/24 03:00 120 MLS/HR Examination: LUNGS:Normal, CVS:Normal, MSK:Normal laboratory and microbiology Laboratory Tests 10/23/24 04:25 Test 10/23/24 04:25 Range/Units Serum Glucose 98 # 74-106 mg/dL Microbiology Date/Time Source Procedure Growth Status 10/22/24 07:58 Blood Blood Culture - Preliminary NO GROWTH AFTER 48 HOURS OF INCUBATION. Resulted Problem List/Assessment/Plan Problem List/Assessment/Plan Acute kidney injury superimposed Chronic Kidney Disease secondary hemodynamic mediated, feNa > 2% Diabetes mellitus type 2 Hyperglycemia Hyperkalemia Sepsis Hypotension Metabolic acidosis Anemia of chronic kidney disease Recommendations Kidney function is improving Increased urine output Desir catheter Strict I&Os Kidneys reported within normal limit on CT scan of abdomen IV fluid hydration with bicarb Insulin sliding scale IV antibiotics We will continue to follow Plan discussed with: Patient My Orders My Orders Orders - ALINE SCOTT MD Procedure Category Date Status Time D5w/Sod Chl 0.45% PHA 10/23/24 In Process (... W/Sodium Bicarb 5 12:45 ALINE SCOTT MD Oct 24, 2024 12:10
--- NOTE | 2024-10-24 12:58 | DVHPN2 ---
Reviewed: Care Plan, H&P, Labs, Medications, Previous Orders, Radiology Changes from previous H/P or p: No Changes Objective Vitals Vital Signs Date Time Temp Pulse Resp B/P (MAP) Pulse Ox O2 Delivery O2 Flow Rate FiO2 10/24/24 10:24 97.7 83 16 104/57 (73) 98 97.7 10/23/24 21:30 Nasal Cannula* 2 28 Intake/Output Intake and Output 10/24/24 07:00 Intake Total 2860.875 ml Output Total 1000 ml Balance 1860.875 ml Intake IV Total 2860.875 ml Output Urine Total 1000 ml General Appearance: Alert, Oriented X3, Cooperative, No acute distress, mild distress, moderate distress, severe distress, Other Lungs: Clear to auscultation, Normal air movement, Other Cardiovascular: Regular rate, Normal S1, Normal S2, No murmurs, Gallops, Rubs, Other Abdomen: Normal bowel sounds (Decreased bowel sounds), Soft, No tenderness, No hepatospenomegaly, No masses, Other Medications Current Medications Medications Dose Ordered Sig/Darvin Route Start Time Stop Time Status Last Admin Dose Admin Ceftriaxone Sodium 50 ml @ 100 mls/hr DAILY@09 IV 10/23/24 09:00 10/24/24 09:47 100 MLS/HR Diagnostic Test (Pha) 1 strip Q6HR 10/23/24 12:00 10/24/24 05:34 1 STRIP Insulin Human Regular Q6HR SC 10/23/24 12:00 Dextrose 50 ml UD PRN IV 10/23/24 11:15 Ondansetron HCl 4 mg Q4HP PRN IV 10/23/24 11:15 10/23/24 11:41 4 MG Morphine Sulfate 2 mg Q4HPRN PRN IV 10/23/24 11:15 10/23/24 11:41 2 MG Nitroglycerin 0.4 mg Q5MINP PRN SL 10/23/24 11:15 Morphine Sulfate 2 mg Q30M PRN IV 10/23/24 11:15 Sodium Bicarbonate 100 ml/Dextrose/ Sodium Chloride 1,100 ml @ 120 mls/hr Q9H10M IV 10/23/24 12:45 10/24/24 12:34 120 MLS/HR Laboratory Results Laboratory Tests 10/23/24 04:25 Urinalysis Test 10/22/24 05:26 10/22/24 12:50 Urine Color Yellow (Yellow) Urine Clarity Clear (Clear) Urine pH 5.0 (5.0-9.0) Urine Specific [place] 1.015 (1.001-1.035) Urine Protein 1+ (Negative) H Urine Ketones Negative (Negative) Urine Blood Negative /uL (Negative) Urine Nitrite Negative (Negative) Urine Bilirubin Negative (Negative) Urine Urobilinogen Normal mg/dL (Negative) Urine Leukocyte Esterase Negative /uL (Negative) Urine RBC <1 /hpf (0 - 3) Urine WBC <1 /hpf (0 - 3) Urine Squamous Epithelial Cells None seen /hpf (<5) Urine Amorphous Crystals Few /hpf (None Seen) Urine Bacteria None seen /hpf (None Seen) Urine Glucose Trace mg/dL (Normal) Urine Creatinine 96.87 mg/dL (30.0-125.0) Urine Protein/Creatinine Ratio 1.45 Urine Sodium 36 mmol/L (40-220) L Urine Total Protein 140.0 mg/dL (1-14) H Microbiology Microbiology Date/Time Source Procedure Growth Status 10/22/24 07:58 Blood Blood Culture - Preliminary NO GROWTH AFTER 48 HOURS OF INCUBATION. Resulted Labs and/or images reviewed: Labs reviewed by me, Image(s) reviewed by me Assessment/Plan Assessment/Plan Sepsis with elevated white count hypotension unknown etiology: Blood cultures neg, continue Rocephin Small-bowel ileus, NG suction IV fluids, GI consult by Dr Roxie Coy appreciated continue current conservative management Acute kidney injury superimposed Chronic Kidney Disease secondary hemodynamic mediated nephrology consult by appreciated Diabetes mellitus type 2: Insulin sliding scale Acute Hyperglycemia Hyperkalemia Sepsis Acute Hypotension: Levophed drip Anemia of chronic kidney disease Acute Metabolic acidosis: Bicarb drip Acute dehydration: IV fluids Patient was in a residential facility [place] for three months discharged and went to [facility] for acute [place] and discharged home, came back here for abdominal pain Time spent 65 minutes Condition guarded Patient is full code Advanced care planning time 20 minutes Left AMA during the previous visit Plan discussed with: Patient Date of Service: Oct 24, 2024 Billing Provider: MIKAEL GAN MD Common Visit Codes: [id number] CARE 30-74 MIN MIKAEL GAN MD Oct 24, 2024 12:58
[2024-10-25] VITALS (7 sets, daily range): BP systolic 102–126; BP diastolic 53–73; PULSE 75–85; RESP 16–22; TEMP 97.2–97.8; O2SAT 95–99
[2024-10-25] MEDS: SODIUM BICARB 8.4% 50Meq/50ml SYR Vial IV ONE (01:24)
[2024-10-25 06:20] LABS: Basophils # (auto) 0 10 ^3/uL (0-0.2); Eosinophils # (auto) 0.4 10 ^3/uL (0-0.8); Hemoglobin 8.3 g/dL (13.5-17.5); Monocytes # (auto) 0.4 10 ^3/uL (0-1.3); Neutrophils # (auto) 5.1 10 ^3/uL (1.6-8.6)
[2024-10-25 06:24] LABS: Basophils % (auto) 0.4 % (0.0-2.0); Eosinophils % (auto) 5.1 % (0.0-7.0); Hematocrit 24.2 % (41.0-53.0); Lymphocytes # (auto) 1.1 10 ^3/uL (0.4-5.4); Lymphocytes % (auto) 16.3 % (10.0-50.0); Mean Corpuscular Hemoglobin 32.1 pg (28.0-32.0); Mean Corpuscular Hgb Conc. 34.4 g/dL (32.0-36.0); Mean Corpuscular Volume 93.2 fL (80.0-100.0); Neutrophils % (auto) 72.2 % (37.0-80.0); Platelet Count (auto) 169 10^3/uL (140-450); Red Cell Distribution Width 13.9 % (11.8-14.3)
[2024-10-25 06:33] LABS: Sodium 142 mmol/L (136-145)
[2024-10-25 06:34] LABS: Anion Gap 10 (5-15); Carbon Dioxide 24 mmol/L (20-31)
[2024-10-25 06:39] LABS: BUN/Creatinine Ratio 24.6 (10.0-20.0); Glucose 77 mg/dL (74-106)
[2024-10-25 06:51] LABS: Blood Urea Nitrogen 60 mg/dL (9-23); Calcium 7.6 mg/dL (8.7-10.4); Chloride 108 mmol/L (98-107); Potassium 3.5 mmol/L (3.5-5.1)
--- NOTE | 2024-10-25 13:26 | DVHPN2 ---
Reviewed: Care Plan, H&P, Labs, Medications, Previous Orders, Radiology Changes from previous H/P or p: No Changes Objective Vitals Vital Signs Date Time Temp Pulse Resp B/P (MAP) Pulse Ox O2 Delivery O2 Flow Rate FiO2 10/25/24 11:59 75 10/25/24 09:00 97.2 17 102/53 (69) 95 97.2 10/24/24 18:57 Nasal Cannula* 3 32 Intake/Output Intake and Output 10/25/24 07:00 Intake Total 2911 ml Output Total 3100 ml Balance -189 ml Intake Oral 1461 ml IV Total 1450 ml Output Urine Total 3100 ml General Appearance: Alert, Oriented X3, Cooperative, No acute distress, mild distress, moderate distress, severe distress, Other Lungs: Clear to auscultation, Normal air movement, Other Cardiovascular: Regular rate, Normal S1, Normal S2, No murmurs, Gallops, Rubs, Other Abdomen: Normal bowel sounds (Decreased bowel sounds), Soft, No tenderness, No hepatospenomegaly, No masses, Other Medications Current Medications Medications Dose Ordered Sig/Darvin Route Start Time Stop Time Status Last Admin Dose Admin Ceftriaxone Sodium 50 ml @ 100 mls/hr DAILY@09 IV 10/23/24 09:00 10/25/24 08:16 100 MLS/HR Diagnostic Test (Pha) 1 strip Q6HR 10/23/24 12:00 10/25/24 11:00 1 STRIP Insulin Human Regular Q6HR SC 10/23/24 12:00 10/25/24 00:07 2 UNITS Dextrose 50 ml UD PRN IV 10/23/24 11:15 Ondansetron HCl 4 mg Q4HP PRN IV 10/23/24 11:15 10/23/24 11:41 4 MG Morphine Sulfate 2 mg Q4HPRN PRN IV 10/23/24 11:15 10/23/24 11:41 2 MG Nitroglycerin 0.4 mg Q5MINP PRN SL 10/23/24 11:15 Morphine Sulfate 2 mg Q30M PRN IV 10/23/24 11:15 Sodium Bicarbonate 100 ml/Dextrose/ Sodium Chloride 1,100 ml @ 120 mls/hr Q9H10M IV 10/23/24 12:45 10/25/24 10:34 120 MLS/HR Laboratory Results Laboratory Tests 10/25/24 05:32 Chemistry Test 10/25/24 05:32 Calcium Level 7.6 mg/dL (8.7-10.4) L Urinalysis Test 10/22/24 05:26 10/22/24 12:50 Urine Color Yellow (Yellow) Urine Clarity Clear (Clear) Urine pH 5.0 (5.0-9.0) Urine Specific [place] 1.015 (1.001-1.035) Urine Protein 1+ (Negative) H Urine Ketones Negative (Negative) Urine Blood Negative /uL (Negative) Urine Nitrite Negative (Negative) Urine Bilirubin Negative (Negative) Urine Urobilinogen Normal mg/dL (Negative) Urine Leukocyte Esterase Negative /uL (Negative) Urine RBC <1 /hpf (0 - 3) Urine WBC <1 /hpf (0 - 3) Urine Squamous Epithelial Cells None seen /hpf (<5) Urine Amorphous Crystals Few /hpf (None Seen) Urine Bacteria None seen /hpf (None Seen) Urine Glucose Trace mg/dL (Normal) Urine Creatinine 96.87 mg/dL (30.0-125.0) Urine Protein/Creatinine Ratio 1.45 Urine Sodium 36 mmol/L (40-220) L Urine Total Protein 140.0 mg/dL (1-14) H Microbiology Microbiology Date/Time Source Procedure Growth Status 10/22/24 07:58 Blood Blood Culture - Preliminary NO GROWTH AFTER 72 HOURS OF INCUBATION. Resulted Labs and/or images reviewed: Labs reviewed by me, Image(s) reviewed by me Assessment/Plan Assessment/Plan Sepsis with elevated white count hypotension unknown etiology: Blood cultures neg, continue Rocephin Small-bowel ileus, NG suction IV fluids, GI consult by Dr Roxie Coy appreciated continue current conservative management Acute kidney injury superimposed Chronic Kidney Disease secondary hemodynamic mediated nephrology consult by appreciated Diabetes mellitus type 2: Insulin sliding scale Acute Hyperglycemia Hyperkalemia Sepsis Acute Hypotension: Levophed drip Anemia of chronic kidney disease Acute Metabolic acidosis: Bicarb drip Acute dehydration: IV fluids Patient was in a retirement facility down the [place] for three months discharged and went to [facility] for acute [place] and discharged home, came back here for abdominal pain Time spent 55 minutes Plan discussed with: Patient My Orders Orders - MIKAEL GAN MD Procedure Category Date Status Time Transfer Orders XFER 10/24/24 Transmitted 16:24 Date of Service: Oct 25, 2024 Billing Provider: MIKAEL GAN MD Common Visit Codes: [id number] INP/OBS CARE(HIGH) MIKAEL GAN MD Oct 25, 2024 13:26
--- NOTE | 2024-10-25 14:29 | DVHPN2 ---
Progress Note Date Seen: Oct 25, 2024 Medical Necessity Reason Pt with a Central, PICC or Fol: No Subjective Patient reports: Other Review of Systems: Deferred Objective vital signs Vital Sign Date Time Temp Pulse Resp B/P (MAP) Pulse Ox O2 Delivery O2 Flow Rate FiO2 10/25/24 13:00 97.8 79 18 122/63 (82) 96 97.8 10/24/24 18:57 Nasal Cannula* 3 32 Total Intake and Output 10/24/24 10/24/24 10/25/24 15:00 23:00 07:00 Intake Total 1010 ml 1576 ml 325 ml Output Total 2100 ml 1000 ml Balance 1010 ml -524 ml -675 ml medications Current Medications Medications Dose Ordered Sig/Darvin Route Start Time Stop Time Status Last Admin Dose Admin Ceftriaxone Sodium 50 ml @ 100 mls/hr DAILY@09 IV 10/23/24 09:00 10/25/24 08:16 100 MLS/HR Diagnostic Test (Pha) 1 strip Q6HR 10/23/24 12:00 10/25/24 11:00 1 STRIP Insulin Human Regular Q6HR SC 10/23/24 12:00 10/25/24 00:07 2 UNITS Dextrose 50 ml UD PRN IV 10/23/24 11:15 Ondansetron HCl 4 mg Q4HP PRN IV 10/23/24 11:15 10/23/24 11:41 4 MG Morphine Sulfate 2 mg Q4HPRN PRN IV 10/23/24 11:15 10/23/24 11:41 2 MG Nitroglycerin 0.4 mg Q5MINP PRN SL 10/23/24 11:15 Morphine Sulfate 2 mg Q30M PRN IV 10/23/24 11:15 Sodium Bicarbonate 100 ml/Dextrose/ Sodium Chloride 1,100 ml @ 120 mls/hr Q9H10M IV 10/23/24 12:45 10/25/24 10:34 120 MLS/HR Examination: GENERAL:Normal, HEENT:Normal, NECK:Normal, LUNGS:Normal, CVS:Normal, ABDOMEN:Normal, MSK:Normal, SKIN:Normal, NEURO:Normal, :Normal laboratory and microbiology Laboratory Tests 10/25/24 05:32 Test 10/25/24 05:32 Range/Units Serum Glucose 77 74-106 mg/dL Microbiology Date/Time Source Procedure Growth Status 10/22/24 07:58 Blood Blood Culture - Preliminary NO GROWTH AFTER 72 HOURS OF INCUBATION. Resulted Problem List/Assessment/Plan Problem List/Assessment/Plan Acute kidney injury superimposed Chronic Kidney Disease secondary hemodynamic mediated, feNa > 2% Diabetes mellitus type 2 Hyperglycemia Hyperkalemia Sepsis Hypotension Metabolic acidosis Anemia of chronic kidney disease recs stop bicarb based ivf renal function better has vogt Plan discussed with: Patient Dietary Evaluation Review Comments: advance patient diet when medically feasible to Renal specific - K2 gram, Na 2 gram, 70g Pro/CCHO 60g continue current plan of care Expected Outcomes/Goals: patient diet to advance; patient labs to improve F/u in 2-3 days PATI RANDALL MD Oct 25, 2024 14:29
[2024-10-26] VITALS (8 sets, daily range): BP systolic 103–145; BP diastolic 54–81; PULSE 78–89; RESP 18–20; TEMP 97.3–98.4; O2SAT 92–98
--- NOTE | 2024-10-26 11:36 | DVHPN2 ---
Reviewed: Care Plan, H&P, Labs, Medications, Previous Orders, Radiology Changes from previous H/P or p: No Changes Objective Vitals Vital Signs Date Time Temp Pulse Resp B/P (MAP) Pulse Ox O2 Delivery O2 Flow Rate FiO2 10/26/24 09:00 98.0 87 19 126/66 (86) 94 98.0 10/26/24 08:00 Nasal Cannula* 2 28 Intake/Output Intake and Output 10/26/24 07:00 Intake Total 1195 ml Output Total 1250 ml Balance -55 ml Intake Oral 425 ml IV Total 770 ml Output Urine Total 1250 ml General Appearance: Alert, Oriented X3, Cooperative, No acute distress, mild distress, moderate distress, severe distress, Other Lungs: Clear to auscultation, Normal air movement, Other Cardiovascular: Regular rate, Normal S1, Normal S2, No murmurs, Gallops, Rubs, Other Abdomen: Normal bowel sounds, Soft, No tenderness, No hepatospenomegaly, No masses, Other Medications Current Medications Medications Dose Ordered Sig/Darvin Route Start Time Stop Time Status Last Admin Dose Admin Ceftriaxone Sodium 50 ml @ 100 mls/hr DAILY@09 IV 10/23/24 09:00 10/26/24 07:32 100 MLS/HR Diagnostic Test (Pha) 1 strip Q6HR 10/23/24 12:00 10/26/24 11:05 1 STRIP Insulin Human Regular Q6HR SC 10/23/24 12:00 10/25/24 16:39 2 UNITS Dextrose 50 ml UD PRN IV 10/23/24 11:15 Ondansetron HCl 4 mg Q4HP PRN IV 10/23/24 11:15 10/23/24 11:41 4 MG Morphine Sulfate 2 mg Q4HPRN PRN IV 10/23/24 11:15 10/23/24 11:41 2 MG Nitroglycerin 0.4 mg Q5MINP PRN SL 10/23/24 11:15 Morphine Sulfate 2 mg Q30M PRN IV 10/23/24 11:15 Laboratory Results Laboratory Tests 10/25/24 05:32 Urinalysis Test 10/22/24 05:26 10/22/24 12:50 Urine Color Yellow (Yellow) Urine Clarity Clear (Clear) Urine pH 5.0 (5.0-9.0) Urine Specific [place] 1.015 (1.001-1.035) Urine Protein 1+ (Negative) H Urine Ketones Negative (Negative) Urine Blood Negative /uL (Negative) Urine Nitrite Negative (Negative) Urine Bilirubin Negative (Negative) Urine Urobilinogen Normal mg/dL (Negative) Urine Leukocyte Esterase Negative /uL (Negative) Urine RBC <1 /hpf (0 - 3) Urine WBC <1 /hpf (0 - 3) Urine Squamous Epithelial Cells None seen /hpf (<5) Urine Amorphous Crystals Few /hpf (None Seen) Urine Bacteria None seen /hpf (None Seen) Urine Glucose Trace mg/dL (Normal) Urine Creatinine 96.87 mg/dL (30.0-125.0) Urine Protein/Creatinine Ratio 1.45 Urine Sodium 36 mmol/L (40-220) L Urine Total Protein 140.0 mg/dL (1-14) H Microbiology Microbiology Date/Time Source Procedure Growth Status 10/22/24 07:58 Blood Blood Culture - Preliminary NO GROWTH AFTER 72 HOURS OF INCUBATION. Resulted Labs and/or images reviewed: Labs reviewed by me, Image(s) reviewed by me Assessment/Plan Assessment/Plan Sepsis with elevated white count hypotension unknown etiology: Blood cultures neg, continue Rocephin Small-bowel ileus, NG suction IV fluids, GI consult by Dr Roxie Coy appreciated continue current conservative management Acute kidney injury superimposed Chronic Kidney Disease secondary hemodynamic mediated nephrology consult by appreciated Diabetes mellitus type 2: Insulin sliding scale Acute Hyperglycemia Hyperkalemia Sepsis Acute Hypotension: Levophed drip Anemia of chronic kidney disease Acute Metabolic acidosis: Bicarb drip Acute dehydration: IV fluids Patient was in a care home facility down the [place] for three months discharged and went to [facility] for acute [place] and discharged home, came back here for abdominal pain Time spent 55 minutes Plan discussed with: Patient My Orders Orders - MIKAEL GAN MD Procedure Category Date Status Time Pt Request For Service PT 10/25/24 Logged 13:26 Date of Service: Oct 26, 2024 Billing Provider: MIKAEL GAN MD Common Visit Codes: [id number] INP/OBS CARE(HIGH) MIKAEL GAN MD Oct 26, 2024 11:35
--- NOTE | 2024-10-26 11:47 | DVHDS2 ---
Discharge Summary Date of Admission Oct 22, 2024 at 06:36 Date of Discharge: Oct 26, 2024 Admitting Diagnosis Altered mental status and confusion Wounds: None Labs/Diagnostic Data: Laboratory Results Test 10/26/24 10:51 10/25/24 05:32 10/23/24 04:25 10/22/24 15:13 POC Glucose 113 mg/dl (70-106) White Blood Count 7.0 10^3/uL (4.4-10.8) Red Blood Count 2.60 10^6/uL (4.5-5.90) Hemoglobin 8.3 g/dL (13.5-17.5) Hematocrit 24.2 % (41.0-53.0) Mean Corpuscular Volume 93.2 fL (80.0-100.0) Mean Corpuscular Hemoglobin 32.1 pg (28.0-32.0) Mean Corpuscular Hemoglobin Concent 34.4 g/dL (32.0-36.0) Red Cell Distribution Width 13.9 % (11.8-14.3) Platelet Count 169 10^3/uL (140-450) Mean Platelet Volume 7.3 fL (6.9-10.8) Neutrophils (%) (Auto) 72.2 % (37.0-80.0) Lymphocytes (%) (Auto) 16.3 % (10.0-50.0) Monocytes (%) (Auto) 6.0 % (0.0-12.0) Eosinophils (%) (Auto) 5.1 % (0.0-7.0) Basophils (%) (Auto) 0.4 % (0.0-2.0) Neutrophils # (Auto) 5.1 10 ^3/uL (1.6-8.6) Lymphocytes # (Auto) 1.1 10 ^3/uL (0.4-5.4) Monocytes # (Auto) 0.4 10 ^3/uL (0-1.3) Eosinophils # (Auto) 0.4 10 ^3/uL (0-0.8) Basophils # (Auto) 0 10 ^3/uL (0-0.2) Nucleated Red Blood Cells 0.0 % Sodium Level 142 mmol/L (136-145) Potassium Level 3.5 mmol/L (3.5-5.1) Chloride Level 108 mmol/L (98-107) Carbon Dioxide Level 24 mmol/L (20-31) Anion Gap 10 (5-15) Blood Urea Nitrogen 60 mg/dL (9-23) Creatinine 2.44 mg/dL (0.700-1.30) Glomerular Filtration Rate Calc 27 mL/min (>90) BUN/Creatinine Ratio 24.6 (10.0-20.0) Serum Glucose 77 mg/dL (74-106) Calcium Level 7.6 mg/dL (8.7-10.4) Differential Total Cells Counted 100.0 (100) Neutrophils % (Manual) 60 (37.0-80.0) Band Neutrophils % (Manual) 14 Lymphocytes % (Manual) 11 (10.0-50.0) Monocytes % (Manual) 12 (0-12) Eosinophils % (Manual) 2 (0-7) Basophils % (Manual) 0 (0.0-2.0) Metamyelocytes % (manual) 0 Myelocytes % (Manual) 1 Promyelocytes % (Manual) 0 Blast Cells % (Manual) 0 Reactive Lymphocytes 0 Platelet Estimate Adequate Total Bilirubin 0.2 mg/dL (0.2-1.0) Aspartate Amino Transferase (AST) 21 U/L (13-40) Alanine Aminotransferase (ALT) 14 U/L (7-40) Alkaline Phosphatase 80 U/L (46-116) Total Protein 6.3 g/dL (5.7-8.2) Albumin 3.0 g/dL (3.2-4.8) Lactic Acid Level 1.8 mmol/L (0.4-2.0) Test 10/22/24 12:50 10/22/24 05:57 10/22/24 05:26 10/22/24 03:40 Urine Creatinine 96.87 mg/dL (30.0-125.0) Urine Protein/Creatinine Ratio 1.45 Urine Sodium 36 mmol/L (40-220) Urine Total Protein 140.0 mg/dL (1-14) Hemoglobin A1c 5.8 % A1C (<5.7) Uric Acid 10.3 mg/dL (3.7-9.2) Phosphorus Level 5.6 mg/dL (2.4-5.1) Magnesium Level 2.2 mg/dL (1.6-2.6) Vitamin D 25-Hydroxy 16.0 ng/mL (30.0-100) Beta-Hydroxybutyric Acid 0.266 mmol/L (< 0.4) Parathyroid Hormone (Intact) 270.3 pg/mL (18.4-80.1) Hepatitis B Surface Antigen Negative (Negative) Hepatitis C Antibody Negative (Negative) Urine Color Yellow (Yellow) Urine Clarity Clear (Clear) Urine pH 5.0 (5.0-9.0) Urine Specific [place] 1.015 (1.001-1.035) Urine Protein 1+ (Negative) Urine Ketones Negative (Negative) Urine Blood Negative /uL (Negative) Urine Nitrite Negative (Negative) Urine Bilirubin Negative (Negative) Urine Urobilinogen Normal mg/dL (Negative) Urine Leukocyte Esterase Negative /uL (Negative) Urine RBC <1 /hpf (0 - 3) Urine WBC <1 /hpf (0 - 3) Urine Squamous Epithelial Cells None seen /hpf (<5) Urine Amorphous Crystals Few /hpf (None Seen) Urine Bacteria None seen /hpf (None Seen) Urine Glucose Trace mg/dL (Normal) Troponin I High Sensitivity 15 ng/L (</=54) Test 10/22/24 02:25 B-Type Natriuretic Peptide 90.89 pg/mL (0-100) Other Laboratory Tests 10/25/24 05:32 Brief Hx & Hospital Course: 74-year-old male with a history of diabetes hypotension anemia of chronic disease chronic kidney disease came in for altered mental status generalized weakness and confusion found to have small-bowel ileus by CT abdomen pelvis without contrast treated with the NG suction IV fluids GI consult by Dr. Roxie coy. Conservative management patient has significantly improved NG tube was removed and having regular diet at the time of discharge patient has a acute kidney injury superimposed on CKD seen by legal services professional and kidney function slowly improving patient also had sepsis of unknown etiology blood cultures negative treated with Rocephin. The patient had hypotension at the time of admission treated with Levophed and hypotension has resolved. Patient being discharged home. Reviewed all his home medications. He will continue all his home medications new prescription for Levaquin transmitted to the pharmacy he will follow up with his primary Dr HDZ and also with the legal services professional in 3-4 days. General condition poor at the time of discharge. Home health being arranged for safety evaluation medication management and physical therapy Consults/Reason for consult [facility] Dr. Pedro Canada Operations or Procedures CT abdomen pelvis without contrast Condition at Discharge: Poor Final Diagnosis/Problems List Sepsis with elevated white count hypotension unknown etiology: Blood cultures neg, continue Rocephin Small-bowel ileus, NG suction IV fluids, GI consult by Dr Roxie Coy appreciated continue current conservative management Acute kidney injury superimposed Chronic Kidney Disease secondary hemodynamic mediated nephrology consult by appreciated Diabetes mellitus type 2: Insulin sliding scale Acute Hyperglycemia Hyperkalemia Sepsis Acute Hypotension: Levophed drip Anemia of chronic kidney disease Discharge Disposition: Home with Health Services Discharge Instruct/Medications Diet: Cardiac 2g Na,low cholest Activity: Light activity Follow Up/Referral: Resume all previous home medications Follow up with the primary Dr in one week Follow up with the GI Dr Horton in one week Follow up with the Nephrology Dr. Vasquez in 3-4 days Medications: Levaquin 750 mg p.o. daily 10. Transmitted to [facility] [id number] [place] [address] Reviewed all other home medications 39 (Taken for Discharge summary 39 minutes) Discharge Statement: "Patient was advised to return to the ER or call 911 if any headaches, dizziness, shortness of breath, chest pain, abdominal pain, bleeding, fevers, or worsening of medical condition. Patient was counseled about treatment plan, medications, possible side effects, patientverbalized understanding. All questions were answered to the best of my ability. This discharge took greater then 30 minutes in planning, reviewing documentation, counseling the patient, and discussing with other team members." ASSESSMENT ASSESSMENT Hospital Course Improved Assessment Sepsis with elevated white count hypotension unknown etiology: Blood cultures neg, continue Rocephin Small-bowel ileus, NG suction IV fluids, GI consult by Dr Roxie Coy appreciated continue current conservative management Acute kidney injury superimposed Chronic Kidney Disease secondary hemodynamic mediated nephrology consult by appreciated Diabetes mellitus type 2: Insulin sliding scale Acute Hyperglycemia Hyperkalemia Sepsis Acute Hypotension: Levophed drip Anemia of chronic kidney disease Date of Service: Oct 26, 2024 Billing Provider: MIKAEL GAN MD Common Visit Codes: [id number] DISCH DAY >30min MIKAEL GAN MD Oct 26, 2024 11:47
[2024-10-26] MEDS ORDERED: LEVO500T91 PO (11:49)
[2024-10-27] VITALS (9 sets, daily range): BP systolic 110–148; BP diastolic 49–78; PULSE 73–83; RESP 16–20; TEMP 98–98.7; O2SAT 90–96
[2024-10-27 05:51] LABS: Potassium 3.7 mmol/L (3.5-5.1); Sodium 139 mmol/L (136-145)
[2024-10-27 05:52] LABS: Anion Gap 9 (5-15); Carbon Dioxide 23 mmol/L (20-31)
[2024-10-27 05:57] LABS: BUN/Creatinine Ratio 15.6 (10.0-20.0); Calcium 7.6 mg/dL (8.7-10.4); Chloride 107 mmol/L (98-107); Glucose 91 mg/dL (74-106)
[2024-10-27 06:00] LABS: Blood Urea Nitrogen 27 mg/dL (9-23)
--- NOTE | 2024-10-27 11:44 | DVHPN2 ---
Reviewed: Care Plan, H&P, Labs, Medications, Previous Orders, Radiology Changes from previous H/P or p: No Changes Objective Vitals Vital Signs Date Time Temp Pulse Resp B/P (MAP) Pulse Ox O2 Delivery O2 Flow Rate FiO2 10/27/24 08:46 98.0 75 16 132/66 (88) 93 98.0 10/26/24 08:00 Nasal Cannula* 2 28 Intake/Output Intake and Output 10/27/24 07:00 Intake Total 450 ml Output Total 800 ml Balance -350 ml Intake Oral 400 ml IV Total 50 ml Output Urine Total 800 ml # Bowel Movements 1 General Appearance: Alert, Oriented X3, Cooperative, No acute distress, mild distress, moderate distress, severe distress, Other Lungs: Clear to auscultation, Normal air movement, Other Cardiovascular: Regular rate, Normal S1, Normal S2, No murmurs, Gallops, Rubs, Other Abdomen: Normal bowel sounds, Soft, No tenderness, No hepatospenomegaly, No masses, Other Medications Current Medications Medications Dose Ordered Sig/Darvin Route Start Time Stop Time Status Last Admin Dose Admin Ceftriaxone Sodium 50 ml @ 100 mls/hr DAILY@09 IV 10/23/24 09:00 10/27/24 09:32 100 MLS/HR Diagnostic Test (Pha) 1 strip Q6HR 10/23/24 12:00 10/27/24 06:00 1 STRIP Insulin Human Regular Q6HR SC 10/23/24 12:00 10/26/24 16:35 2 UNITS Dextrose 50 ml UD PRN IV 10/23/24 11:15 Ondansetron HCl 4 mg Q4HP PRN IV 10/23/24 11:15 10/26/24 20:45 4 MG Morphine Sulfate 2 mg Q4HPRN PRN IV 10/23/24 11:15 10/23/24 11:41 2 MG Nitroglycerin 0.4 mg Q5MINP PRN SL 10/23/24 11:15 Morphine Sulfate 2 mg Q30M PRN IV 10/23/24 11:15 Laboratory Results Laboratory Tests 10/25/24 05:32 10/27/24 05:18 Chemistry Test 10/27/24 05:18 Calcium Level 7.6 mg/dL (8.7-10.4) L Urinalysis Test 10/22/24 05:26 10/22/24 12:50 Urine Color Yellow (Yellow) Urine Clarity Clear (Clear) Urine pH 5.0 (5.0-9.0) Urine Specific [place] 1.015 (1.001-1.035) Urine Protein 1+ (Negative) H Urine Ketones Negative (Negative) Urine Blood Negative /uL (Negative) Urine Nitrite Negative (Negative) Urine Bilirubin Negative (Negative) Urine Urobilinogen Normal mg/dL (Negative) Urine Leukocyte Esterase Negative /uL (Negative) Urine RBC <1 /hpf (0 - 3) Urine WBC <1 /hpf (0 - 3) Urine Squamous Epithelial Cells None seen /hpf (<5) Urine Amorphous Crystals Few /hpf (None Seen) Urine Bacteria None seen /hpf (None Seen) Urine Glucose Trace mg/dL (Normal) Urine Creatinine 96.87 mg/dL (30.0-125.0) Urine Protein/Creatinine Ratio 1.45 Urine Sodium 36 mmol/L (40-220) L Urine Total Protein 140.0 mg/dL (1-14) H Microbiology Microbiology Date/Time Source Procedure Growth Status 10/22/24 07:58 Blood Blood Culture - Final NO GROWTH AFTER 5 DAYS OF INCUBATION. Complete Labs and/or images reviewed: Labs reviewed by me, Image(s) reviewed by me Assessment/Plan Assessment/Plan Sepsis with elevated white count hypotension unknown etiology: Blood cultures neg, continue Rocephin Small-bowel ileus, NG suction IV fluids, GI consult by Dr Roxie Coy appreciated continue current conservative management Acute kidney injury superimposed Chronic Kidney Disease secondary hemodynamic mediated nephrology consult by appreciated Diabetes mellitus type 2: Insulin sliding scale Acute Hyperglycemia Hyperkalemia Sepsis Acute Hypotension: Levophed drip Anemia of chronic kidney disease Acute Metabolic acidosis: Bicarb drip Acute dehydration: IV fluids Patient was in a intermediate facility down the [place] for three months discharged and went to [facility] for acute [facility] and discharged home, came back here for abdominal pain Time spent 55 minutes Patient is discharged home on home health on 10/26/2024 He is refusing to leave Advised delinquency prevention social worker to give him Medicare appeal letter. No intermediate facility is accepting the patient as he ran out of Medicare days Examined today. No new complaints Plan discussed with: Patient My Orders Orders - MIKAEL GAN MD Procedure Category Date Status Time Discharge DISCHARGE 10/26/24 Transmitted 11:41 Mrsa Screen DANNY 10/26/24 In Process 13:23 * [employer] CONS 10/27/24 Verified Consult Date of Service: Oct 27, 2024 Billing Provider: MIKAEL GAN MD Common Visit Codes: [id number] INP/OBS CARE(HIGH) MIKAEL GAN MD Oct 27, 2024 11:44
--- NOTE | 2024-10-27 19:52 | DVHPN2 ---
Progress Note Date Seen: Oct 27, 2024 Medical Necessity Reason Pt with a Central, PICC or Fol: Yes Subjective Patient reports: No new complaints Review of Systems: HEENT:Normal, CVS:Normal, RESPIRATORY:Normal, GI:Normal, :Normal, MSK:Normal, NEURO:Normal Objective vital signs Vital Sign Date Time Temp Pulse Resp B/P (MAP) Pulse Ox O2 Delivery O2 Flow Rate FiO2 10/27/24 17:00 98.2 75 18 120/76 (91) 92 98.2 10/27/24 08:05 Nasal Cannula* 3 32 Total Intake and Output 10/26/24 10/26/24 10/27/24 15:00 23:00 07:00 Intake Total 50 ml 400 ml Output Total 800 ml Balance 50 ml -400 ml medications Current Medications Medications Dose Ordered Sig/Darvin Route Start Time Stop Time Status Last Admin Dose Admin Ceftriaxone Sodium 50 ml @ 100 mls/hr DAILY@09 IV 10/23/24 09:00 10/27/24 09:32 100 MLS/HR Diagnostic Test (Pha) 1 strip Q6HR 10/23/24 12:00 10/27/24 17:32 1 STRIP Insulin Human Regular Q6HR SC 10/23/24 12:00 10/27/24 17:51 2 UNITS Dextrose 50 ml UD PRN IV 10/23/24 11:15 Ondansetron HCl 4 mg Q4HP PRN IV 10/23/24 11:15 10/26/24 20:45 4 MG Morphine Sulfate 2 mg Q4HPRN PRN IV 10/23/24 11:15 10/23/24 11:41 2 MG Nitroglycerin 0.4 mg Q5MINP PRN SL 10/23/24 11:15 Morphine Sulfate 2 mg Q30M PRN IV 10/23/24 11:15 Examination: GENERAL:Normal, HEENT:Normal, NECK:Normal, LUNGS:Normal, CVS:Normal, ABDOMEN:Normal, MSK:Normal, SKIN:Normal, NEURO:Normal, :Normal laboratory and microbiology Laboratory Tests 10/27/24 05:18 10/25/24 05:32 Test 10/27/24 05:18 Range/Units Serum Glucose 91 74-106 mg/dL Microbiology Date/Time Source Procedure Growth Status 10/26/24 13:39 Nose MRSA Screen - Final Complete 10/22/24 07:58 Blood Blood Culture - Final NO GROWTH AFTER 5 DAYS OF INCUBATION. Complete Problem List/Assessment/Plan Problem List/Assessment/Plan Acute kidney injury superimposed Chronic Kidney Disease secondary hemodynamic mediated, feNa > 2% Diabetes mellitus type 2 Hyperglycemia Hyperkalemia Sepsis Hypotension Metabolic acidosis Anemia of chronic kidney disease recs stop bicarb based ivf renal function better has vogt Plan discussed with: Patient Dietary Evaluation Review Comments: advance patient diet when medically feasible to Renal specific - K2 gram, Na 2 gram, 70g Pro/CCHO 60g continue current plan of care Expected Outcomes/Goals: patient diet to advance; patient labs to improve F/u in 2-3 days PATI RANDALL MD Oct 27, 2024 19:52
[2024-10-28] VITALS (7 sets, daily range): BP systolic 110–150; BP diastolic 62–80; PULSE 70–82; RESP 18–19; TEMP 36.8; O2SAT 91–98
--- NOTE | 2024-10-28 11:46 | DVHPN2 ---
Reviewed: Care Plan, H&P, Labs, Medications, Previous Orders, Radiology Changes from previous H/P or p: No Changes Objective Vitals Vital Signs Date Time Temp Pulse Resp B/P (MAP) Pulse Ox O2 Delivery O2 Flow Rate FiO2 10/28/24 09:04 98.2 73 19 150/79 (102) 94 98.2 10/28/24 08:05 Nasal Cannula* 3 32 Intake/Output Intake and Output 10/28/24 07:00 Intake Total 1850 ml Output Total 1375 ml Balance 475 ml Intake Oral 1800 ml IV Total 50 ml Output Urine Total 1375 ml General Appearance: Alert, Oriented X3, Cooperative, No acute distress, mild distress, moderate distress, severe distress, Other Lungs: Clear to auscultation, Normal air movement, Other Cardiovascular: Regular rate, Normal S1, Normal S2, No murmurs, Gallops, Rubs, Other Abdomen: Normal bowel sounds, Soft, No tenderness, No hepatospenomegaly, No masses, Other Medications Current Medications Medications Dose Ordered Sig/Darvin Route Start Time Stop Time Status Last Admin Dose Admin Ceftriaxone Sodium 50 ml @ 100 mls/hr DAILY@09 IV 10/23/24 09:00 10/28/24 09:21 100 MLS/HR Diagnostic Test (Pha) 1 strip Q6HR 10/23/24 12:00 10/28/24 06:00 1 STRIP Insulin Human Regular Q6HR SC 10/23/24 12:00 10/27/24 17:51 2 UNITS Dextrose 50 ml UD PRN IV 10/23/24 11:15 Ondansetron HCl 4 mg Q4HP PRN IV 10/23/24 11:15 10/26/24 20:45 4 MG Morphine Sulfate 2 mg Q4HPRN PRN IV 10/23/24 11:15 10/23/24 11:41 2 MG Nitroglycerin 0.4 mg Q5MINP PRN SL 10/23/24 11:15 Morphine Sulfate 2 mg Q30M PRN IV 10/23/24 11:15 Laboratory Results Laboratory Tests 10/25/24 05:32 10/27/24 05:18 Urinalysis Test 10/22/24 05:26 10/22/24 12:50 Urine Color Yellow (Yellow) Urine Clarity Clear (Clear) Urine pH 5.0 (5.0-9.0) Urine Specific [place] 1.015 (1.001-1.035) Urine Protein 1+ (Negative) H Urine Ketones Negative (Negative) Urine Blood Negative /uL (Negative) Urine Nitrite Negative (Negative) Urine Bilirubin Negative (Negative) Urine Urobilinogen Normal mg/dL (Negative) Urine Leukocyte Esterase Negative /uL (Negative) Urine RBC <1 /hpf (0 - 3) Urine WBC <1 /hpf (0 - 3) Urine Squamous Epithelial Cells None seen /hpf (<5) Urine Amorphous Crystals Few /hpf (None Seen) Urine Bacteria None seen /hpf (None Seen) Urine Glucose Trace mg/dL (Normal) Urine Creatinine 96.87 mg/dL (30.0-125.0) Urine Protein/Creatinine Ratio 1.45 Urine Sodium 36 mmol/L (40-220) L Urine Total Protein 140.0 mg/dL (1-14) H Microbiology Microbiology Date/Time Source Procedure Growth Status 10/26/24 13:39 Nose MRSA Screen - Final Complete 10/22/24 07:58 Blood Blood Culture - Final NO GROWTH AFTER 5 DAYS OF INCUBATION. Complete Labs and/or images reviewed: Labs reviewed by me, Image(s) reviewed by me Assessment/Plan Assessment/Plan Sepsis with elevated white count hypotension unknown etiology: Blood cultures neg, continue Rocephin Small-bowel ileus, NG suction IV fluids, GI consult by Dr Roxie Coy appreciated continue current conservative management Acute kidney injury superimposed Chronic Kidney Disease secondary hemodynamic mediated nephrology consult by appreciated Diabetes mellitus type 2: Insulin sliding scale Acute Hyperglycemia Hyperkalemia Sepsis Acute Hypotension: Levophed drip Anemia of chronic kidney disease Acute Metabolic acidosis: Bicarb drip Acute dehydration: IV fluids Patient was discharged home on home health on 10/26/2024 Patient is refusing to leave and appealed to Medicare Plan discussed with: Patient Date of Service: Oct 28, 2024 Billing Provider: MIKAEL GAN MD Common Visit Codes: [id number] INP/OBS CARE(HIGH) MIKAEL GAN MD Oct 28, 2024 11:46
--- NOTE | 2024-10-28 16:54 | DVHPN2 ---
Progress Note Date Seen: Oct 28, 2024 Medical Necessity Reason Pt with a Central, PICC or Fol: Yes Subjective Patient reports: No new complaints Review of Systems: Deferred Objective vital signs Vital Sign Date Time Temp Pulse Resp B/P (MAP) Pulse Ox O2 Delivery O2 Flow Rate FiO2 10/28/24 13:00 98.3 72 19 130/72 (91) 97 98.3 10/28/24 08:05 Nasal Cannula* 3 32 Total Intake and Output 10/27/24 10/27/24 10/28/24 15:00 23:00 07:00 Intake Total 50 ml 1400 ml 400 ml Output Total 750 ml 625 ml Balance 50 ml 650 ml -225 ml medications Current Medications Medications Dose Ordered Sig/Darvin Route Start Time Stop Time Status Last Admin Dose Admin Ceftriaxone Sodium 50 ml @ 100 mls/hr DAILY@09 IV 10/23/24 09:00 10/28/24 09:21 100 MLS/HR Diagnostic Test (Pha) 1 strip Q6HR 10/23/24 12:00 10/28/24 12:00 1 STRIP Insulin Human Regular Q6HR SC 10/23/24 12:00 10/27/24 17:51 2 UNITS Dextrose 50 ml UD PRN IV 10/23/24 11:15 Ondansetron HCl 4 mg Q4HP PRN IV 10/23/24 11:15 10/26/24 20:45 4 MG Morphine Sulfate 2 mg Q4HPRN PRN IV 10/23/24 11:15 10/23/24 11:41 2 MG Nitroglycerin 0.4 mg Q5MINP PRN SL 10/23/24 11:15 Morphine Sulfate 2 mg Q30M PRN IV 10/23/24 11:15 laboratory and microbiology Laboratory Tests 10/27/24 05:18 10/25/24 05:32 Test 10/27/24 05:18 Range/Units Serum Glucose 91 74-106 mg/dL Microbiology Date/Time Source Procedure Growth Status 10/26/24 13:39 Nose MRSA Screen - Final Complete 10/22/24 07:58 Blood Blood Culture - Final NO GROWTH AFTER 5 DAYS OF INCUBATION. Complete Problem List/Assessment/Plan Problem List/Assessment/Plan Acute kidney injury superimposed Chronic Kidney Disease secondary hemodynamic mediated, feNa > 2% Diabetes mellitus type 2 Hyperglycemia Hyperkalemia Sepsis Hypotension Metabolic acidosis Anemia of chronic kidney disease recs renal function better dc ivf Plan discussed with: Patient Dietary Evaluation Review Comments: advance patient diet when medically feasible to Renal specific - K2 gram, Na 2 gram, 70g Pro/CCHO 60g continue current plan of care Expected Outcomes/Goals: patient diet to advance; patient labs to improve F/u in 2-3 days PATI RANDALL MD Oct 28, 2024 16:54
== END 2024-10-28 18:20 | disposition home health service (06) | DRG 872 ==
LOC: EDBD 01:28 → ER 01:28 → TELE 06:36 → ER 06:51 → TELE-WESTW 10-24 17:47
PROVIDERS: ADMIT Nurse Practitioner; ATTEND Family Medicine
PROC: 06HY33Z Insertion of Infusion Device into Lower Vein, Percutaneous Approach (ICD-10-PCS; principal; 2024-10-22)
PROC: 0D9670Z Drainage of Stomach with Drainage Device, Via Natural or Artificial Opening (ICD-10-PCS; 2024-10-23)
DX: A41.9 Sepsis, unspecified organism (principal); I13.0 Hypertensive heart and chronic kidney disease with heart failure and stage 1 through stage 4 chronic kidney disease, or unspecified chronic kidney disease; K56.0 Paralytic ileus; N17.9 Acute kidney failure, unspecified; E87.21 Acute metabolic acidosis; N18.9 Chronic kidney disease, unspecified; E11.22 Type 2 diabetes mellitus with diabetic chronic kidney disease; E11.65 Type 2 diabetes mellitus with hyperglycemia; E87.5 Hyperkalemia; E86.0 Dehydration; F17.210 Nicotine dependence, cigarettes, uncomplicated; E11.51 Type 2 diabetes mellitus with diabetic peripheral angiopathy without gangrene; I50.9 Heart failure, unspecified; D63.1 Anemia in chronic kidney disease; Z86.73 Personal history of transient ischemic attack (TIA), and cerebral infarction without residual deficits; Z79.4 Long term (current) use of insulin
CPT/HCPCS: 36415; 71045; 74176; 80048; 80053; 81001; 82010; 82306; 82570; 82962; 83036; 83605; 83735; 83880; 83970; 84100; 84156; 84300; 84484; 84550; 85007; 85025; 85027; 86803; 86850; 86900; 86901; 87040; 87081; 87340; 93005; 94640; 96365; 96375; 97110; 97162; 97530; 99291; G0378; J1815; J2405; J3490